=== PATIENT | female | born 1960 | race Caucasian/White ===

== ENCOUNTER 2025-07-27 22:02 | Inpatient (IN) | payer OTHER, SELFPAY ==
[2025-07-27 22:39] VITALS: BP 135/63; PULSE 65; RESP 18; TEMP 36.2; O2SAT 97
[2025-07-27 22:44] VITALS: BMI 25.4
--- NOTE | 2025-07-28 06:26 | PC.NURSE ---
Patient is a 65 y/o female admitted at 22:30 on a CV for unspecified depressive disorder. Patient presented to [facility] on 07/22/25 d/t dizziness and confusion and later referred to behavioral health d/t concerns with AMS and ability to care for self. Patient is alert and oriented x 4 upon arrival, calm and soft spoken, flat affect and apathetic. Patient reports reason for admission is confusion, depression r/t to health and financial stressors, denies any HI/SI/AH/VH. Patient has a history of depression and various medical conditions including HTN, HDL, low grade B cell lymphoma, PUD, GERD, CHF and cardiomyopathy, LBBB, vertigo, anemia, primary biliary cholangitis, history of c-diff and antiphospholipid antibody syndrome. Skin assessment is significant for swelling in L antecubital r/t iv administration. Contraband search is clear, patient is continent and independent with ADLs. Patient signed admission paperwork, placed on 5 minutes safety check.
[2025-07-28 08:00] VITALS: BP 85/55; PULSE 77; RESP 17; TEMP 36.4; O2SAT 96
--- NOTE | 2025-07-28 08:12 | P.CONHOSP_ITS ---
History of Present Illness Data of Consult Service Date: 07/28/25 Primary Care Provider: Unknown Physician HPI Reason for consult: Medical consult 65-year-old female with past medical history of GERD, chronic kidney disease stage 3, heart failure with reduced EF of 38%, hypertension, hyperlipidemia, cardiomyopathy, patient also has AICD, poly arthralgia, vertigo, peptic ulcer disease, anemia, primary biliary cholangitis, history of C diff, phospholipid and depression, she was recently admitted to [facility] initially as a psychiatric admission and then later transferred to medicine for C diff colitis. She was discharged in June. Incidentally patient was found to have [id number] right hydronephrosis without obstructing calculus. Also found to have a 1 cm right thyroid nodule. She underwent a head and neck CTA which demonstrated no acute intracranial findings, no occlusion or hemodynamically significant stenosis or aneurysm. S x-ray demonstrated no acute cardiopulmonary abnormality. Review of Systems 2 Review of Systems: Denies any shortness of breath, chest pain, palpitations, dizziness, lightheadedness, headaches, dysuria, abdominal pain or discomfort, nausea, vomiting or diarrhea. Denies chills, body aches, muscle aches, fatigue or weight loss. PMFSH Social History Household Members: Family Housing: House Do you presently have visiting nurse or other home services: No Patient Tobacco Use Status: Former Tobacco user Tobacco use type: Cigarette Years Smoked: 20 Smoked in Last 30 Days: No Patient Interested in Nicotine Replacement: No Patient Given Instructions on How to Stop Smoking: No Currently Displaying Signs/Symptoms of Drug Intoxication Withdrawal: No Have you been hit, kicked, punched, or otherwise hurt by someone within the past year? If so, by whom?: No Do you feel safe in your current relationship?: Yes Is there a partner from a previous relationship who is making you feel unsafe now?: No Are you made to feel afraid or neglected: No Advance Directives: No Advance Directives Information Provided: Yes Do you have thoughts of harming others: None Do you have a plan to hurt others: No Plan Recently lost weight without trying: Yes How much weight loss: 14-23 pounds Eating poorly because of decreased appetite: Yes Nutrition screen score: 5 Nutrition Risks: Dental problems Patient : No : No Meds Allergies Allergy/AdvReac Type Severity Reaction Status Date / Time No Known Allergies Allergy Verified 07/27/25 22:12 Active Medications: Current Medications Acetaminophen (Acetaminophen 325 Mg Tablet) 650 mg PO Q6H PRN PRN Reason: Headache/Pain, Scale 1-10 Al Hydroxide/Mg Hydroxide (Magnesium Hydrox/Alum Hydrox 30 Ml Oral.Susp) 30 ml PO Q6H PRN PRN Reason: Heartburn/Nausea Atorvastatin Calcium (Atorvastatin Calcium 40 Mg Tablet) 40 mg PO DAILY [facility] Carvedilol (Carvedilol 25 Mg Tablet) 25 mg PO BID [facility]; Protocol Last Admin: 07/28/25 00:39 Dose: 25 mg Fluoxetine HCl (Fluoxetine Hcl 20 Mg Capsule) 40 mg PO DAILY [facility] Hydroxyzine HCl (Hydroxyzine Hcl 25 Mg Tablet) 25 mg PO Q6H PRN PRN Reason: mild anxiety Lisinopril (Lisinopril 10 Mg Tablet) 10 mg PO DAILY [facility]; Protocol Magnesium Hydroxide (Milk Of Magnesia 30 Ml Oral.Susp) 30 ml PO DAILY PRN PRN Reason: Constipation Nicotine (Nicotine 21 Mg Patch.Td24) 21 mg TRANSDERMA DAILY PRN PRN Reason: nicotine craving Nicotine Polacrilex (Nicotine Polacrilex 2 Mg Gum) 2 mg BUCCAL Q2H PRN PRN Reason: Nicotine Cravings Trazodone HCl (Trazodone Hcl 50 Mg Tablet) 50 mg PO BEDTIME MRX1 PRN PRN Reason: Insomnia Trazodone HCl (Trazodone Hcl 50 Mg Tablet) 50 mg PO BEDTIME [facility] Last Admin: 07/28/25 00:39 Dose: 50 mg Home Medications ?Medication ?Instructions ?Recorded ?Confirmed ?Last Taken ?Type atorvastatin 40 mg tablet 40 mg PO DAILY 07/27/2506/13 Unknown History carvedilol 25 mg tablet 25 mg PO BID 07/27/25 Unknown History fluoxetine 40 mg capsule 40 mg PO QAM 07/27/25 Unknown History lisinopril 10 mg tablet 10 mg PO DAILY 07/27/2506/13 Unknown History trazodone 50 mg tablet 50 mg PO BEDTIME 07/27/25 Unknown History Physical Exam 2 Vital Signs and Narrative: Vital Signs: Last Vital Signs Temp 97.1 F 07/27/25 22:39 Pulse 65 07/27/25 22:39 Resp 18 07/27/25 22:39 BP 135/63 07/27/25 22:39 Pulse Ox 97 07/27/25 22:39 O2 Del Method Room Air 07/27/25 22:39 BMI result Body Mass Index 25.4 CONST: Alert and oriented, in NAD. Well nourished HEENT: Normocephalic, atraumatic, MMM, Eyes clear, Neck supple RESP: Lungs clear, RRR even and regular HEART:,RRR, S1, S2. No edema GI:Abdomen Soft NT, ND. + BS times four :Deferred SKIN: Warm dry and intact, no visible lesions or rashes NEURO:CN II-XII Intact bilaterally, Sensation intact. Speech clear PSYCH: Normal affect Results Labs 07/28/25 07:21 Assessment and Plan (1) Chronic kidney disease: Status: Acute Plan 64-year-old female with past medical history as listed below, admitted to [facility] for continued care. Major depressive disorder Treatment per psychiatric team GERD Continue omeprazole as needed Chronic kidney disease stage 3 Stable, continue to follow Avoid nephrotoxins Heart failure with reduced EF of 38%/hypertension/hyperlipidemia/cardiomyopathy/AICD/history of left bundle- branch block Her outpatient medications were recently reduced to carvedilol 12.5 b.i.d., and lisinopril 5 mg p.o. daily Continue with Lasix 10 mg daily as needed for edema, or weight gain greater than 2 lb overnight Patient's AICD is not MRI compatible Incidental finding of thyroid nodule We will need outpatient follow up [id number] right hydronephrosis without radiopaque obstructing calculus Possibly due to UPJ obstruction We will need follow up in 1 week for a Mag 3 Lasix renogram. Patient should follow up with Dr. Toth Thank you for allowing me to participate in the care of this patient. Will follow as needed, please notify medical provider with any changes in condition or concerns.
[2025-07-28 08:17] LABS: Hemoglobin A1C 83.7628 umol/L; Total Hemoglobin (HGBA1C) 2660.5961 umol/L
[2025-07-28 08:26] LABS: Alanine Aminotransferase 83 U/L (0-31); Albumin Level 3.2 g/dL (3.5-5.0); Alkaline Phosphatase 124 U/L (39-117); Anion Gap 10 (12-20); Aspartate Amino Transferase 67 U/L (5-31); Blood Urea Nitrogen 11 mg/dL (9-16); Calcium 9.0 mg/dL (8.4-10.2); Carbon Dioxide 27 mmol/L (22-29); Chloride 110 mmol/L (96-108); Cholesterol 116 mg/dL (<200); Creatinine Clr Calc Pharmacy 63.8; Estimated Glomerular Filt Rate > 60; HDL Cholesterol 39 mg/dL (>40); Potassium 3.7 mmol/L (3.3-5.1); Sodium 143 mmol/L (135-145); Total Protein 6.2 g/dL (6.5-8.0); Triglycerides 104 mg/dL (<150)
--- NOTE | 2025-07-28 08:42 | HO.PSYADMNOT ---
HPI Date of Service: 07/28/25 Chief Complaint: unspecified depressive disorder Sources of Information: patient interviewed, chart reviewed and crisis/core team assessment reviewed HPI Subjective Notes: Wiseman Warning and Conditional Voluntary Narrative: Mrs. Chavez is a 65 year-old woman with hx of depression, memory issues who was brought by her mother to [facility] due to increase dizziness. She also was recently discharged from psychiatric unit at [facility] after treatment of depression. Per pt's mother, she looked worse than when she went into the hospital in that per mother, pt was still depressed, in bed, not caring for herself. On the unit, pt reports her mood actually is okay. She reports she is here because she has had gaps in memory. She reports she is forgetful. She reports this has been an issue for past few years. She reports her memory is affecting her ability to care for herself. She denies suicidal ideation. She reports her appetite is as usual. She denies hx of VH/AH. She reports she has only had one prior psychiatric admission which is the one she just had at [facility]. She reports she has been seeing a psychiatrist for memory issues. Collateral information from mother who reports pt has been living with her for the past 4 years. Mother reports pt struggles with forgetfulness, difficulty cooking (not knowing how to start or initiate simple cooking), getting lost when driving. She has been mostly in bed. Past Psychiatric History: Inpt: [facility] 06/2025, 5 years ago in [place] (unknown facility or reason for admission) OP: Adair Sanchez MD [facility]. Past medication trials: prozac denies hx of suicide attempts. Medical Evaluation Reviewed: Yes [facility] Substance History: Alcohol use: excessive drinking after in 1998. none recently. Diagnostics Vital Signs (24Hr): Vital Signs - 24 hr 07/27/25 22:39 Temperature 97.1 F Pulse Rate 65 Respiratory Rate 18 Blood Pressure 135/63 Pulse Oximetry 97 Oxygen Delivery Method Room Air BMI result Body Mass Index 25.4 Labs 07/28/25 07:21 Labs: Laboratory Results - last 48 hr 07/28/25 07:21 Sodium 143 Potassium 3.7 Chloride 110 H Carbon Dioxide 27 Anion Gap 10 L BUN 11 Creatinine 0.85 Estim Creat Clear Calc 63.8 Estimated GFR > 60 Random Glucose 101 Estimat Average Glucose 97 Hemoglobin A1c % 5.0 Calcium 9.0 Total Bilirubin 0.3 AST 67 H ALT 83 H Alkaline Phosphatase 124 H Total Protein 6.2 L Albumin 3.2 L Triglycerides 104 Cholesterol 116 LDL Cholesterol, Calc 57 HDL Cholesterol 39 L Meds/Allergies Meds Home Medications ?Medication ?Instructions ?Recorded ?Confirmed ?Type atorvastatin 40 mg tablet 40 mg PO DAILY 07/27/25 07/27/25 History carvedilol 25 mg tablet 25 mg PO BID 07/27/25 07/27/25 History fluoxetine 40 mg capsule 40 mg PO QAM 07/27/25 07/27/25 History lisinopril 10 mg tablet 10 mg PO DAILY 07/27/25 07/27/25 History trazodone 50 mg tablet 50 mg PO BEDTIME 07/27/25 07/27/25 History Allergies Allergies Allergy/AdvReac Type Severity Reaction Status Date / Time No Known Allergies Allergy Verified 07/27/25 22:12 Mental Status Exam Mental Status Exam Narrative: Appearance: wearing hospital gown, fair hygiene, in NAD Behavior: cooperative Psychomotor: no agitation or retardation noted Speech: clear, normal rate/rhythm/volume, spontaneous TP: linear TC: c/o of memory gaps Mood: okay Affect: congruent, constricted range SI: denies HI: denies VH/AH: none Delusions: none Insight/judgment: fair x 2. Memory/cog: alert, oriented to month, year, situation Assessment & Plan Assessment & Plan (1) MDD (major depressive disorder), recurrent episode, moderate: Status: Acute Code(s): F33.1 - Major depressive disorder, recurrent, moderate (2) Cognitive impairment: Status: Acute Code(s): R41.89 - Other symptoms and signs involving cognitive functions and awareness Plan Ms. Chavez is a 65 year-old woman who was brought to [facility] due to dizziness. She lives with her mother who is main caregiver and reports that patient for the past 4 years has been presenting with inability to care for herself, getting lost when driving, forgetful. She denies symptoms of depression and suicidality. She reports her main concern is memory gaps. Discussed risks, benefits and alternative treatment options. Will continue current medications. Per mother, she has not been seen by neurology. PLAN 1. Admit to S1, CV, 5 minutes checks for safety 2. Obtain collateral information 3. memory/cog: work up. It appears that she has not had MRI. Pending MOCA/ACL. may include serum [id number]/amyloid Patient educated on: diagnosis and medication risk/benefits Reason for continued inpatient stay Substantial Risk for: harm to self Statement Statement: I have reviewed the history and physical and performed a pertinent examination on my patient. No changes have occurred unless specified. If the History and Physical was not performed prior to admission, the Hospitalist's service will be consulted for completing the admission physical. Time Spent With Patient Time: Total time managing care of this patient today ____ minutes.
[2025-07-28 08:43] LABS: Free T4 (Free Thyroxine) 0.87 ng/dL (0.71-1.85); Thyroid Stimulating Hormone 3.70 uIU/mL (0.32-4.0)
[2025-07-28 08:49] LABS: Folate 7.2 ng/mL (> or = 4.0); Vitamin B12 357 pg/mL (200-900)
[2025-07-28 09:08] VITALS: BP 85/55; PULSE 77
[2025-07-28 09:09] VITALS: BP 85/55
--- NOTE | 2025-07-28 13:30 | PC.NURSE ---
Wendy's BP at am 85/55, p 77. Blood pressure meds held, dr Ignacio notified by tara. Re-check a few hours later for BP 104/62, P 74. I talked to the pt about the flu shot. She said she got it already showing the left deltoid with band aid on it. However, pt didn't remember when or where she got it.
[2025-07-28 13:33] VITALS: BMI 25.3
[2025-07-28 20:00] VITALS: BP 100/59; PULSE 68; RESP 16; TEMP 36.5; O2SAT 96
[2025-07-29 08:00] VITALS: BP 113/68; PULSE 73; RESP 16; TEMP 36.2; O2SAT 95
--- NOTE | 2025-07-29 09:34 | P.PNPSI_ITS ---
Subjective Subjective Date of Service: 07/29/25 Reason For Visit: unspecified depressive disorder Subjective Notes: Conditional Voluntary Interim History: Pt sleeping through the night. She continues to report mood is okay, concern about her memory. collateral information from mother who reports pt increased memory issues for the past 4 years, but she has not been seen by neurologist. No Si/HI. no VHAH. Review of Systems Review of Systems No chest pain, no SOB. No constipation or diarrhea. Reports vision changes on right eye. no painful eye. Mental Status Exam Mental Status Exam Narrative: Appearance: wearing hospital gown, fair hygiene, in NAD Behavior: cooperative Psychomotor: no agitation or retardation noted Speech: clear, normal rate/rhythm/volume, spontaneous TP: linear TC: c/o of memory gaps Mood: okay Affect: congruent, constricted range SI: denies HI: denies VH/AH: none Delusions: none Insight/judgment: fair x 2. Memory/cog: alert, oriented to month, year, situation Diagnostics Vital Signs (24Hr): Vital Signs - 24 hr 07/28/25 20:00 07/29/25 08:00 Temperature 97.7 F 97.2 F Pulse Rate 68 73 Respiratory Rate 16 16 Blood Pressure 100/59 L 113/68 Pulse Oximetry 96 95 Oxygen Delivery Method Room Air BMI result Body Mass Index 25.3 Labs 07/28/25 07:21 Labs: Laboratory Results - last 48 hr 07/28/25 07:21 Sodium 143 Potassium 3.7 Chloride 110 H Carbon Dioxide 27 Anion Gap 10 L BUN 11 Creatinine 0.85 Estim Creat Clear Calc 63.8 Estimated GFR > 60 Random Glucose 101 Estimat Average Glucose 97 Hemoglobin A1c % 5.0 Calcium 9.0 Total Bilirubin 0.3 AST 67 H ALT 83 H Alkaline Phosphatase 124 H Total Protein 6.2 L Albumin 3.2 L Triglycerides 104 Cholesterol 116 LDL Cholesterol, Calc 57 HDL Cholesterol 39 L Vitamin B12 357 Folate 7.2 TSH 3.70 Free T4 0.87 Medications Medications Current Medications Acetaminophen (Acetaminophen 325 Mg Tablet) 650 mg PO Q6H PRN PRN Reason: Headache/Pain, Scale 1-10 Last Admin: 07/28/25 08:17 Dose: 650 mg Al Hydroxide/Mg Hydroxide (Magnesium Hydrox/Alum Hydrox 30 Ml Oral.Susp) 30 ml PO Q6H PRN PRN Reason: Heartburn/Nausea Atorvastatin Calcium (Atorvastatin Calcium 40 Mg Tablet) 40 mg PO DAILY [facility] Last Admin: 07/29/25 08:54 Dose: 40 mg Carvedilol (Carvedilol 25 Mg Tablet) 12.5 mg PO BID [facility]; Protocol Last Admin: 07/29/25 08:53 Dose: 12.5 mg Fluoxetine HCl (Fluoxetine Hcl 20 Mg Capsule) 40 mg PO DAILY [facility] Last Admin: 07/29/25 08:53 Dose: 40 mg Hydroxyzine HCl (Hydroxyzine Hcl 25 Mg Tablet) 25 mg PO Q6H PRN PRN Reason: mild anxiety Lisinopril (Lisinopril 5 Mg Tablet) 5 mg PO DAILY [facility]; Protocol Last Admin: 07/29/25 08:53 Dose: 5 mg Magnesium Hydroxide (Milk Of Magnesia 30 Ml Oral.Susp) 30 ml PO DAILY PRN PRN Reason: Constipation Nicotine (Nicotine 21 Mg Patch.Td24) 21 mg TRANSDERMA DAILY PRN PRN Reason: nicotine craving Nicotine Polacrilex (Nicotine Polacrilex 2 Mg Gum) 2 mg BUCCAL Q2H PRN PRN Reason: Nicotine Cravings Trazodone HCl (Trazodone Hcl 50 Mg Tablet) 50 mg PO BEDTIME MRX1 PRN PRN Reason: Insomnia Trazodone HCl (Trazodone Hcl 50 Mg Tablet) 50 mg PO BEDTIME [facility] Last Admin: 07/28/25 21:07 Dose: 50 mg Allergies Allergies Allergy/AdvReac Type Severity Reaction Status Date / Time No Known Allergies Allergy Verified 07/27/25 22:12 Assessment & Plan Assessment & Plan (1) MDD (major depressive disorder), recurrent episode, moderate: Status: Acute Code(s): F33.1 - Major depressive disorder, recurrent, moderate Plan Ms. Chavez is a 65 year-old woman who was brought to [facility] due to dizziness. She lives with her mother who is main caregiver and reports that patient for the past 4 years has been presenting with inability to care for herself, getting lost when driving, forgetful. She denies symptoms of depression and suicidality. She reports her main concern is memory gaps. Discussed risks, benefits and alternative treatment options. Will continue current medications. Per mother, she has not been seen by neurology. PLAN 07/30 she can't have MRI due to implantable device not compatible with MRI. may need to be referred to memory clinic in her catch area. otherwise seems stable, mood wick. Reason for continued inpatient stay Substantial Risk for: inability to function Time Spent With Patient Time: Total time managing care of this patient today ____ minutes.
[2025-07-29 20:00] VITALS: BP 95/55; PULSE 65; RESP 18; TEMP 36.5; O2SAT 95
[2025-07-29 21:06] VITALS: BP 90/55; PULSE 63
[2025-07-30 08:48] VITALS: BP 100/54; PULSE 62; RESP 18; TEMP 36.6; O2SAT 95
[2025-07-30 09:53] VITALS: BMI 25.8
--- NOTE | 2025-07-30 12:53 | HO.PSYCHPN ---
Subjective Subjective Date of Service: 07/30/25 Reason For Visit: unspecified depressive disorder Subjective Notes: Conditional Voluntary Interim History: Patient was seen and discussed in rounds today. Records and plans were reviewed. She has been stable and is doing better but continues to be confused. Complaining of some low back pain for which she did receive some medications. The nurses asked for the Lasix order which was agreed in the treatment planning to be put in for 10 mg if the overnight weight is more than 2 lb. No SI. No behavioral issues Review of Systems Review of Systems Yes all other systems are reviewed and are negative Mental Status Exam Mental Status Exam Narrative: Appearance: wearing hospital gown, fair hygiene, in NAD Behavior: cooperative Psychomotor: no agitation or retardation noted Speech: clear, normal rate/rhythm/volume, spontaneous TP: linear TC: c/o of memory gaps Mood: okay Affect: congruent, constricted range SI: denies HI: denies VH/AH: none Delusions: none Insight/judgment: fair x 2. Memory/cog: alert, oriented to month, year, situation Diagnostics Vital Signs (24Hr): Vital Signs - 24 hr 07/29/25 20:00 07/29/25 21:06 07/30/25 08:48 Temperature 97.7 F 97.9 F Pulse Rate 65 63 62 Respiratory Rate 18 18 Blood Pressure 95/55 L 90/55 L 100/54 L Pulse Oximetry 95 95 Oxygen Delivery Method Room Air Room Air BMI result Body Mass Index 25.8 Labs 07/28/25 07:21 Medications Medications Current Medications Acetaminophen (Acetaminophen 325 Mg Tablet) 650 mg PO Q6H PRN PRN Reason: Headache/Pain, Scale 1-10 Last Admin: 07/28/25 08:17 Dose: 650 mg Al Hydroxide/Mg Hydroxide (Magnesium Hydrox/Alum Hydrox 30 Ml Oral.Susp) 30 ml PO Q6H PRN PRN Reason: Heartburn/Nausea Atorvastatin Calcium (Atorvastatin Calcium 40 Mg Tablet) 40 mg PO DAILY [facility] Last Admin: 07/30/25 08:54 Dose: 40 mg Carvedilol (Carvedilol 25 Mg Tablet) 12.5 mg PO BID [facility]; Protocol Last Admin: 07/30/25 08:52 Dose: 12.5 mg Fluoxetine HCl (Fluoxetine Hcl 20 Mg Capsule) 40 mg PO DAILY [facility] Last Admin: 07/30/25 08:53 Dose: 40 mg Hydroxyzine HCl (Hydroxyzine Hcl 25 Mg Tablet) 25 mg PO Q6H PRN PRN Reason: mild anxiety Lisinopril (Lisinopril 5 Mg Tablet) 5 mg PO DAILY [facility]; Protocol Last Admin: 07/30/25 08:54 Dose: 5 mg Magnesium Hydroxide (Milk Of Magnesia 30 Ml Oral.Susp) 30 ml PO DAILY PRN PRN Reason: Constipation Nicotine (Nicotine 21 Mg Patch.Td24) 21 mg TRANSDERMA DAILY PRN PRN Reason: nicotine craving Nicotine Polacrilex (Nicotine Polacrilex 2 Mg Gum) 2 mg BUCCAL Q2H PRN PRN Reason: Nicotine Cravings Trazodone HCl (Trazodone Hcl 50 Mg Tablet) 50 mg PO BEDTIME MRX1 PRN PRN Reason: Insomnia Trazodone HCl (Trazodone Hcl 50 Mg Tablet) 50 mg PO BEDTIME [facility] Last Admin: 07/29/25 21:07 Dose: 50 mg Allergies Allergies Allergy/AdvReac Type Severity Reaction Status Date / Time No Known Allergies Allergy Verified 07/27/25 22:12 Assessment & Plan Assessment & Plan (1) MDD (major depressive disorder), recurrent episode, moderate: Status: Acute Code(s): F33.1 - Major depressive disorder, recurrent, moderate Plan Ms. Chavez is a 65 year-old woman who was brought to [facility] [place] due to dizziness. She lives with her mother who is main caregiver and reports that patient for the past 4 years has been presenting with inability to care for herself, getting lost when driving, forgetful. She denies symptoms of depression and suicidality. She reports her main concern is memory gaps. Discussed risks, benefits and alternative treatment options. Will continue current medications. Per mother, she has not been seen by neurology. PLAN 07/30 she can't have MRI due to implantable device not compatible with MRI. may need to be referred to memory clinic in her catch area. otherwise seems stable, mood wick. 07/30: Continue current regimen and plans Reason for continued inpatient stay Substantial Risk for: med/psych decompensation Time Spent With Patient Time: Total time managing care of this patient today ____ minutes.
[2025-07-30 20:00] VITALS: BP 123/52; PULSE 67; RESP 16; TEMP 36.3; O2SAT 94
[2025-07-30 20:48] VITALS: BP 123/52; PULSE 67
[2025-07-31 07:25] VITALS: BMI 25.7
[2025-07-31 08:04] VITALS: BP 111/66; PULSE 64; RESP 18; TEMP 36.3; O2SAT 98
--- NOTE | 2025-07-31 12:28 | HO.PSYCHPN ---
Subjective Subjective Date of Service: 07/31/25 Reason For Visit: unspecified depressive disorder Subjective Notes: Conditional Voluntary Interim History: Patient was seen and discussed in rounds today. Records and plans were reviewed. She has been stable. She did not require any Lasix this morning because of no additional weight gain. She is flat. Slightly brighter. Withdrawn. No behavioral issues. No changes were made today Review of Systems Review of Systems Yes all other systems are reviewed and are negative Mental Status Exam Mental Status Exam Narrative: Appearance: wearing hospital gown, fair hygiene, in NAD Behavior: cooperative Psychomotor: no agitation or retardation noted Speech: clear, normal rate/rhythm/volume, spontaneous TP: linear TC: c/o of memory gaps Mood: okay Affect: congruent, constricted range SI: denies HI: denies VH/AH: none Delusions: none Insight/judgment: fair x 2. Memory/cog: alert, oriented to month, year, situation Diagnostics Vital Signs (24Hr): Vital Signs - 24 hr 07/30/25 20:00 07/30/25 20:48 07/31/25 08:04 Temperature 97.3 F 97.3 F Pulse Rate 67 67 64 Respiratory Rate 16 18 Blood Pressure 123/52 L 123/52 L 111/66 Pulse Oximetry 94 98 Oxygen Delivery Method Room Air Room Air BMI result Body Mass Index 25.7 Labs 07/28/25 07:21 Medications Medications Current Medications Acetaminophen (Acetaminophen 325 Mg Tablet) 650 mg PO Q6H PRN PRN Reason: Headache/Pain, Scale 1-10 Last Admin: 07/28/25 08:17 Dose: 650 mg Al Hydroxide/Mg Hydroxide (Magnesium Hydrox/Alum Hydrox 30 Ml Oral.Susp) 30 ml PO Q6H PRN PRN Reason: Heartburn/Nausea Atorvastatin Calcium (Atorvastatin Calcium 40 Mg Tablet) 40 mg PO DAILY [facility] Last Admin: 07/31/25 08:47 Dose: 40 mg Carvedilol (Carvedilol 25 Mg Tablet) 12.5 mg PO BID [facility]; Protocol Last Admin: 07/31/25 08:46 Dose: 12.5 mg Fluoxetine HCl (Fluoxetine Hcl 20 Mg Capsule) 40 mg PO DAILY [facility] Last Admin: 07/31/25 08:47 Dose: 40 mg Furosemide (Furosemide 20 Mg Tablet) 10 mg PO DAILY PRN; Protocol PRN Reason: edema Hydroxyzine HCl (Hydroxyzine Hcl 25 Mg Tablet) 25 mg PO Q6H PRN PRN Reason: mild anxiety Lisinopril (Lisinopril 5 Mg Tablet) 5 mg PO DAILY [facility]; Protocol Last Admin: 07/31/25 08:47 Dose: 5 mg Magnesium Hydroxide (Milk Of Magnesia 30 Ml Oral.Susp) 30 ml PO DAILY PRN PRN Reason: Constipation Nicotine (Nicotine 21 Mg Patch.Td24) 21 mg TRANSDERMA DAILY PRN PRN Reason: nicotine craving Nicotine Polacrilex (Nicotine Polacrilex 2 Mg Gum) 2 mg BUCCAL Q2H PRN PRN Reason: Nicotine Cravings Trazodone HCl (Trazodone Hcl 50 Mg Tablet) 50 mg PO BEDTIME MRX1 PRN PRN Reason: Insomnia Trazodone HCl (Trazodone Hcl 50 Mg Tablet) 50 mg PO BEDTIME [facility] Last Admin: 07/30/25 20:48 Dose: 50 mg Allergies Allergies Allergy/AdvReac Type Severity Reaction Status Date / Time No Known Allergies Allergy Verified 07/27/25 22:12 Assessment & Plan Assessment & Plan (1) MDD (major depressive disorder), recurrent episode, moderate: Status: Acute Code(s): F33.1 - Major depressive disorder, recurrent, moderate Plan Ms. Chavez is a 65 year-old woman who was brought to [facility] due to dizziness. She lives with her mother who is main caregiver and reports that patient for the past 4 years has been presenting with inability to care for herself, getting lost when driving, forgetful. She denies symptoms of depression and suicidality. She reports her main concern is memory gaps. Discussed risks, benefits and alternative treatment options. Will continue current medications. Per mother, she has not been seen by neurology. PLAN 07/30 she can't have MRI due to implantable device not compatible with MRI. may need to be referred to memory clinic in [place]. otherwise seems stable, mood wick. 07/30: Continue current regimen and plans 07/31: Continue current regimen and plans Reason for continued inpatient stay Substantial Risk for: med/psych decompensation Time Spent With Patient Time: Total time managing care of this patient today ____ minutes.
[2025-07-31 19:39] VITALS: BP 110/56; PULSE 68; RESP 18; TEMP 36.3; O2SAT 97
[2025-08-01 06:00] VITALS: BMI 25.9
[2025-08-01 08:00] VITALS: BP 123/62; PULSE 75; TEMP 36.2; O2SAT 95
--- NOTE | 2025-08-01 10:13 | P.PNPSI_ITS ---
Subjective Subjective Date of Service: 08/01/25 Reason For Visit: unspecified depressive disorder Subjective Notes: Conditional Voluntary Interim History: Patient was seen and discussed in rounds today. Records and plans were reviewed. She is stable and is doing well. No overnight weight gain. Feels that her depression has improved. No behavioral issues. Eating and sleeping well. No changes were made today Review of Systems Review of Systems Yes all other systems are reviewed and are negative Mental Status Exam Mental Status Exam Narrative: In today's visit she is alert, oriented and pleasant. Normal speech. Good eye contact. Affect is appropriate and varied. No signs of psychosis. Some cognitive impairment. No SI. Diagnostics Vital Signs (24Hr): Vital Signs - 24 hr 07/31/25 19:39 Temperature 97.3 F Pulse Rate 68 Respiratory Rate 18 Blood Pressure 110/56 L Pulse Oximetry 97 Oxygen Delivery Method Room Air BMI result Body Mass Index 25.9 Labs 07/28/25 07:21 Medications Medications Current Medications Acetaminophen (Acetaminophen 325 Mg Tablet) 650 mg PO Q6H PRN PRN Reason: Headache/Pain, Scale 1-10 Last Admin: 07/28/25 08:17 Dose: 650 mg Al Hydroxide/Mg Hydroxide (Magnesium Hydrox/Alum Hydrox 30 Ml Oral.Susp) 30 ml PO Q6H PRN PRN Reason: Heartburn/Nausea Atorvastatin Calcium (Atorvastatin Calcium 40 Mg Tablet) 40 mg PO DAILY [facility] Last Admin: 08/01/25 08:44 Dose: 40 mg Carvedilol (Carvedilol 25 Mg Tablet) 12.5 mg PO BID [facility]; Protocol Last Admin: 08/01/25 08:44 Dose: 12.5 mg Fluoxetine HCl (Fluoxetine Hcl 20 Mg Capsule) 40 mg PO DAILY [facility] Last Admin: 08/01/25 08:45 Dose: 40 mg Furosemide (Furosemide 20 Mg Tablet) 10 mg PO DAILY PRN; Protocol PRN Reason: edema Hydroxyzine HCl (Hydroxyzine Hcl 25 Mg Tablet) 25 mg PO Q6H PRN PRN Reason: mild anxiety Lisinopril (Lisinopril 5 Mg Tablet) 5 mg PO DAILY [facility]; Protocol Last Admin: 08/01/25 08:45 Dose: 5 mg Magnesium Hydroxide (Milk Of Magnesia 30 Ml Oral.Susp) 30 ml PO DAILY PRN PRN Reason: Constipation Nicotine (Nicotine 21 Mg Patch.Td24) 21 mg TRANSDERMA DAILY PRN PRN Reason: nicotine craving Nicotine Polacrilex (Nicotine Polacrilex 2 Mg Gum) 2 mg BUCCAL Q2H PRN PRN Reason: Nicotine Cravings Trazodone HCl (Trazodone Hcl 50 Mg Tablet) 50 mg PO BEDTIME MRX1 PRN PRN Reason: Insomnia Trazodone HCl (Trazodone Hcl 50 Mg Tablet) 50 mg PO BEDTIME [facility] Last Admin: 07/31/25 20:41 Dose: 50 mg Allergies Allergies Allergy/AdvReac Type Severity Reaction Status Date / Time No Known Allergies Allergy Verified 07/27/25 22:12 Assessment & Plan Assessment & Plan (1) MDD (major depressive disorder), recurrent episode, moderate: Status: Acute Code(s): F33.1 - Major depressive disorder, recurrent, moderate Plan Ms. Chavez is a 65 year-old woman who was brought to [facility] due to dizziness. She lives with her mother who is main caregiver and reports that patient for the past 4 years has been presenting with inability to care for herself, getting lost when driving, forgetful. She denies symptoms of depression and suicidality. She reports her main concern is memory gaps. Discussed risks, benefits and alternative treatment options. Will continue current medications. Per mother, she has not been seen by neurology. PLAN 07/30 she can't have MRI due to implantable device not compatible with MRI. may need to be referred to memory clinic in her [place] area. otherwise seems stable, mood wick. 07/30: Continue current regimen and plans 07/31: Continue current regimen and plans 08/01: Continue current regimen and plans. Reason for continued inpatient stay Substantial Risk for: med/psych decompensation Time Spent With Patient Time: Total time managing care of this patient today ____ minutes.
[2025-08-01 14:59] LABS: Vitamin D 25-OH, D2 <4 ng/mL; Vitamin D 25-OH, D3 23 ng/mL; Vitamin D 25-OH, Total 23 ng/mL (30-100)
[2025-08-01 20:00] VITALS: BP 95/50; PULSE 67; TEMP 36.3; O2SAT 97
[2025-08-01 20:17] VITALS: BP 95/50; PULSE 67
[2025-08-02 06:00] VITALS: BMI 26.3
[2025-08-02 08:00] VITALS: BP 109/65; PULSE 84; RESP 14; TEMP 36.3; O2SAT 95
--- NOTE | 2025-08-02 08:37 | HO.PSYCHPN ---
Subjective Subjective Reason For Visit: unspecified depressive disorder Diagnostics Vital Signs (24Hr): Vital Signs - 24 hr 08/01/25 20:00 08/01/25 20:17 08/02/25 08:00 Temperature 97.4 F 97.4 F Pulse Rate 67 67 84 Respiratory Rate 14 Blood Pressure 95/50 L 95/50 L 109/65 Pulse Oximetry 97 95 Oxygen Delivery Method Room Air Room Air BMI result Body Mass Index 25.9 Labs 07/28/25 07:21 Labs: Laboratory Results - last 48 hr 07/28/25 07:21 25-OH Vitamin D Total 23 L 25-Hydroxy Vitamin D2 <4 25-Hydroxy Vitamin D3 23 Medications Medications Current Medications Acetaminophen (Acetaminophen 325 Mg Tablet) 650 mg PO Q6H PRN PRN Reason: Headache/Pain, Scale 1-10 Last Admin: 07/28/25 08:17 Dose: 650 mg Al Hydroxide/Mg Hydroxide (Magnesium Hydrox/Alum Hydrox 30 Ml Oral.Susp) 30 ml PO Q6H PRN PRN Reason: Heartburn/Nausea Atorvastatin Calcium (Atorvastatin Calcium 40 Mg Tablet) 40 mg PO DAILY [facility] Last Admin: 08/02/25 08:30 Dose: 40 mg Carvedilol (Carvedilol 25 Mg Tablet) 12.5 mg PO BID [facility]; Protocol Last Admin: 08/02/25 08:31 Dose: 12.5 mg Fluoxetine HCl (Fluoxetine Hcl 20 Mg Capsule) 40 mg PO DAILY [facility] Last Admin: 08/02/25 08:30 Dose: 40 mg Furosemide (Furosemide 20 Mg Tablet) 10 mg PO DAILY PRN; Protocol PRN Reason: edema Hydroxyzine HCl (Hydroxyzine Hcl 25 Mg Tablet) 25 mg PO Q6H PRN PRN Reason: mild anxiety Last Admin: 08/01/25 20:54 Dose: 25 mg Lisinopril (Lisinopril 5 Mg Tablet) 5 mg PO DAILY [facility]; Protocol Last Admin: 08/02/25 08:30 Dose: 5 mg Magnesium Hydroxide (Milk Of Magnesia 30 Ml Oral.Susp) 30 ml PO DAILY PRN PRN Reason: Constipation Nicotine (Nicotine 21 Mg Patch.Td24) 21 mg TRANSDERMA DAILY PRN PRN Reason: nicotine craving Nicotine Polacrilex (Nicotine Polacrilex 2 Mg Gum) 2 mg BUCCAL Q2H PRN PRN Reason: Nicotine Cravings Trazodone HCl (Trazodone Hcl 50 Mg Tablet) 50 mg PO BEDTIME MRX1 PRN PRN Reason: Insomnia Trazodone HCl (Trazodone Hcl 50 Mg Tablet) 50 mg PO BEDTIME [facility] Last Admin: 08/01/25 20:12 Dose: 50 mg Allergies Allergies Allergy/AdvReac Type Severity Reaction Status Date / Time No Known Allergies Allergy Verified 07/27/25 22:12 Assessment & Plan Assessment & Plan (1) MDD (major depressive disorder), recurrent episode, moderate: Status: Acute Code(s): F33.1 - Major depressive disorder, recurrent, moderate Plan Ms. Chavez is a 65 year-old woman who was brought to [email or web address] due to dizziness. She lives with her mother who is main caregiver and reports that patient for the past 4 years has been presenting with inability to care for herself, getting lost when driving, forgetful. She denies symptoms of depression and suicidality. She reports her main concern is memory gaps. Discussed risks, benefits and alternative treatment options. Will continue current medications. Per mother, she has not been seen by neurology. PLAN 07/30 she can't have MRI due to implantable device not compatible with MRI. may need to be referred to memory clinic in her catch area. otherwise seems stable, mood wick. 07/30: Continue current regimen and plans 07/31: Continue current regimen and plans 08/01: Continue current regimen and plans. Time Spent With Patient Time: Total time managing care of this patient today ____ minutes.
--- NOTE | 2025-08-02 17:08 | P.PNPSI_ITS ---
Subjective Subjective Date of Service: 08/02/25 Reason For Visit: unspecified depressive disorder Subjective Notes: Conditional Voluntary Medical Problems Affecting Mental Status: No Interim History: Medical record and nursing notes reviewed; case discussed during rounds with team/nursing staff, and met with patient for supportive therapy/psychoeducation, as well as medication management. Meet with patient in assigned room. Report she slept and ate well. Last BM was yesterday. Report feeling anxious but not too much for depression. She knows she is at the [facility] but could not remember how she gets there. Mood is pretty good but sometime feels confused. Report recently moved in with mom and mom's partner d/t financial problems- currently has no income. Hx of applied for SSDI/SSI but was denied. She follows psychiatrist with Adair Flores since Covid in [place] and would like to continue service with him for aftercare. Report she had treatment for lymphoma. Denies SI/SIB/HI/AVH. visible in common areas at time but mostly quiet and keep to self. She denies side effects from medication and does not wish to have meds changes at this current time. Continue with current tx plan. Some cognitive impairment. Denies dementia treatment or dx hx. SW will reach out to arrange family meeting this week. MOCA (score 21/30) and ACLS (scored 3.6) was done by OT. Medication Compliance: Yes Side effects from medications: No Attending Groups: Intermittent Review of Systems Acute medical concerns: No Medical Review of Systems: unchanged Review of Systems Review of Systems Constitutional: Denies fatigue and Denies fever(s) Cardiovascular: Denies chest pain and Denies dyspnea Respiratory: Denies dyspnea Gastrointestinal: Denies abdominal pain Psychiatric: denies suicidal ideation Endocrine: Denies fatigue Yes all other systems are reviewed and are negative Mental Status Exam Mental Status Exam Narrative: Patient is alert and oriented, pleasant. Normal speech. Good eye contact. Affect is appropriate. No signs of psychosis. Some cognitive impairment. No ALD's issues. Wearing hospital attire. Thought process is organized and on treatment. No SI/SIB/HI/AVH. Judgment and insight are poor but improved Diagnostics Vital Signs (24Hr): Vital Signs - 24 hr 08/01/25 20:00 08/01/25 20:17 08/02/25 08:00 Temperature 97.4 F 97.4 F Pulse Rate 67 67 84 Respiratory Rate 14 Blood Pressure 95/50 L 95/50 L 109/65 Pulse Oximetry 97 95 Oxygen Delivery Method Room Air Room Air BMI result Body Mass Index 26.3 Labs 07/28/25 07:21 Labs: Laboratory Results - last 48 hr 07/28/25 07:21 25-OH Vitamin D Total 23 L 25-Hydroxy Vitamin D2 <4 25-Hydroxy Vitamin D3 23 Medications Medications Current Medications Acetaminophen (Acetaminophen 325 Mg Tablet) 650 mg PO Q6H PRN PRN Reason: Headache/Pain, Scale 1-10 Last Admin: 07/28/25 08:17 Dose: 650 mg Al Hydroxide/Mg Hydroxide (Magnesium Hydrox/Alum Hydrox 30 Ml Oral.Susp) 30 ml PO Q6H PRN PRN Reason: Heartburn/Nausea Atorvastatin Calcium (Atorvastatin Calcium 40 Mg Tablet) 40 mg PO DAILY [facility] Last Admin: 08/02/25 08:30 Dose: 40 mg Carvedilol (Carvedilol 25 Mg Tablet) 12.5 mg PO BID [facility]; Protocol Last Admin: 08/02/25 08:31 Dose: 12.5 mg Fluoxetine HCl (Fluoxetine Hcl 20 Mg Capsule) 40 mg PO DAILY [facility] Last Admin: 08/02/25 08:30 Dose: 40 mg Furosemide (Furosemide 20 Mg Tablet) 10 mg PO DAILY PRN; Protocol PRN Reason: edema Hydroxyzine HCl (Hydroxyzine Hcl 25 Mg Tablet) 25 mg PO Q6H PRN PRN Reason: mild anxiety Last Admin: 08/01/25 20:54 Dose: 25 mg Lisinopril (Lisinopril 5 Mg Tablet) 5 mg PO DAILY [facility]; Protocol Last Admin: 08/02/25 08:30 Dose: 5 mg Magnesium Hydroxide (Milk Of Magnesia 30 Ml Oral.Susp) 30 ml PO DAILY PRN PRN Reason: Constipation Nicotine (Nicotine 21 Mg Patch.Td24) 21 mg TRANSDERMA DAILY PRN PRN Reason: nicotine craving Nicotine Polacrilex (Nicotine Polacrilex 2 Mg Gum) 2 mg BUCCAL Q2H PRN PRN Reason: Nicotine Cravings Trazodone HCl (Trazodone Hcl 50 Mg Tablet) 50 mg PO BEDTIME MRX1 PRN PRN Reason: Insomnia Trazodone HCl (Trazodone Hcl 50 Mg Tablet) 50 mg PO BEDTIME [facility] Last Admin: 08/01/25 20:12 Dose: 50 mg Allergies Allergies Allergy/AdvReac Type Severity Reaction Status Date / Time No Known Allergies Allergy Verified 07/27/25 22:12 Assessment & Plan Assessment & Plan (1) MDD (major depressive disorder), recurrent episode, moderate: Status: Acute Code(s): F33.1 - Major depressive disorder, recurrent, moderate (2) Cognitive impairment: Status: Acute Code(s): R41.89 - Other symptoms and signs involving cognitive functions and awareness Plan Plan Ms. Chavez is a 65 year-old woman who was brought to [facility] due to dizziness. She lives with her mother who is main caregiver and reports that patient for the past 4 years has been presenting with inability to care for herself, getting lost when driving, forgetful. She denies symptoms of depression and suicidality. She reports her main concern is memory gaps. Discussed risks, benefits and alternative treatment options. Will continue current medications. Per mother, she has not been seen by neurology. PLAN 07/30 she can't have MRI due to implantable device not compatible with MRI. may need to be referred to memory clinic in her catch area. otherwise seems stable, mood wick. 07/30: Continue current regimen and plans 07/31: Continue current regimen and plans 08/01: Continue current regimen and plans. 08/02/25: Meet with patient in assigned room. Report she slept and ate well. Last BM was yesterday. Report feeling anxious but not too much for depression. She knows she is at the [facility] but could not remember how she gets there. Mood is pretty good but sometime feels confused. Report recently moved in with mom and mom's partner d/t financial problems- currently has no income. Hx of applied for SSDI/SSI but was denied. She follows psychiatrist with Adair Flores since [facility] in [place] and would like to continue service with him for aftercare. Report she had treatment for lymphoma. Denies SI/SIB/HI/AVH. visible in common areas at time but mostly quiet and keep to self. She denies side effects from medication and does not wish to have meds changes at this current time. Continue with current tx plan. Some cognitive impairment. Denies dementia treatment or dx hx. SW will reach out to arrange family meeting this week. MOCA (score 21/30) and ACLS (scored 3.6) was done by OT. Elevated ALT/AST, low Vit D, Low total protein. Patient educated on: diagnosis, medication risk/benefits and therapeutic strategies Informed Consent: understands and further education needed Reason for continued inpatient stay Substantial Risk for: med/psych decompensation Time Spent With Patient Time: Total time managing care of this patient today ____ minutes.
[2025-08-02 20:00] VITALS: BP 98/54; PULSE 72; RESP 16; TEMP 36.3; O2SAT 98
[2025-08-02 20:50] VITALS: BP 98/54; PULSE 72
[2025-08-03 06:00] VITALS: BMI 26.1
--- NOTE | 2025-08-03 06:14 | PC.NURSE ---
Pt reports 1 episode of diarrhea during the night. Pt assisted with hygiene due to smearing of stool on her johnnies.
[2025-08-03 08:00] VITALS: BP 96/52; PULSE 62; RESP 14; TEMP 36.1; O2SAT 97
--- NOTE | 2025-08-03 14:27 | HO.PSYCHPN ---
Subjective Subjective Date of Service: 08/03/25 Reason For Visit: unspecified depressive disorder Subjective Notes: Conditional Voluntary Medical Problems Affecting Mental Status: No Interim History: Medical record and nursing notes reviewed; case discussed during rounds with team/nursing staff, and met with patient for supportive therapy/psychoeducation, as well as medication management. Per collateral information from OT/SW: patient lives with her mother and her mother's SO at home. She presented to the ED at [facility] after her family and PCP reported concerns about her inability to care for herself, overall functional and cognitive decline. Pt's family report that they have taken her car keys away as she recently got lost while driving. They note a marked and ongoing cognitive decline. Pts 86 yr old mother and her SO provide support for pts ADLs and IADLs. Pts brother is her POA and HCP. 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 Pt presents with poverty of thought and initiation. She scored a 21/30 on the MoCA indicating mild cognitive impairment with marked deficits in executive function and STM. She scored a 3.6 on the ACLS indicating a large FUNCTIONAL gap and the need for 50% cognitive assistance. Pt is MOD A for ADLs. From a functional professor to the point she lost her job, not able to care for self, move back to live with mom and mom's pattern. Mom is 86 y.o who also needs to take care of patient. Patient has not officially dx with dementia or cognitive disorder. Clinical and collateral showing that patient behaviors meet criteria for major neurocognitvie d/o. Accoding to DSM-5 criteria for dementia AKA major neurocognitive disorder: A: ?Evidence of significant cognitive decline from a previous level of performance in one or more cognitive domains*: - Learning and memory: confused and not able to process inforation, not able to manage her own finanical, lost job when college change learing/teaching system and has to do learing online training where she could not make it. - Language: some langues difficulty to express her self - Executive function: as note above from ACLS - Complex attention: poor, declined - Perceptual-motor- Social cognition B: The cognitive deficits interfere with independence in everyday activities. At a minimum, assistance should be required with complex instrumental activities of daily living, such as paying bills or managing medications: mom has to assist C: The cognitive deficits do not occur exclusively in the context of a delirium: no delirium symptoms at this time of assessment. D.?The cognitive deficits are not better explained by another mental disorder (eg, major depressive disorder, schizophrenia): patient has some mild depression symptoms but not the cause of cognitive deficits. Medication Compliance: Yes Side effects from medications: No Attending Groups: No Review of Systems Acute medical concerns: No Medical Review of Systems: unchanged Review of Systems Review of Systems Constitutional: Denies fatigue and Denies fever(s) Cardiovascular: Denies chest pain and Denies dyspnea Respiratory: Denies dyspnea Gastrointestinal: Denies abdominal pain Psychiatric: denies suicidal ideation Endocrine: Denies fatigue Yes all other systems are reviewed and are negative Mental Status Exam Mental Status Exam Narrative: Patient is alert and oriented, pleasant. Normal speech. Good eye contact. Affect is appropriate. No signs of psychosis. Some cognitive impairment. No ALD's issues. Wearing hospital attire. Thought process is organized and on treatment. No SI/SIB/HI/AVH. Judgment and insight poor-fair Diagnostics Vital Signs (24Hr): Vital Signs - 24 hr 08/02/25 20:00 08/02/25 20:50 08/03/25 08:00 Temperature 97.3 F 97 F Pulse Rate 72 72 62 Respiratory Rate 16 14 Blood Pressure 98/54 L 98/54 L 96/52 L Pulse Oximetry 98 97 Oxygen Delivery Method Room Air Room Air BMI result Body Mass Index 26.1 Labs 07/28/25 07:21 Labs: Laboratory Results - last 48 hr 07/28/25 07:21 25-OH Vitamin D Total 23 L 25-Hydroxy Vitamin D2 <4 25-Hydroxy Vitamin D3 23 Medications Medications Current Medications Acetaminophen (Acetaminophen 325 Mg Tablet) 650 mg PO Q6H PRN PRN Reason: Headache/Pain, Scale 1-10 Last Admin: 07/28/25 08:17 Dose: 650 mg Al Hydroxide/Mg Hydroxide (Magnesium Hydrox/Alum Hydrox 30 Ml Oral.Susp) 30 ml PO Q6H PRN PRN Reason: Heartburn/Nausea Atorvastatin Calcium (Atorvastatin Calcium 40 Mg Tablet) 40 mg PO DAILY [facility] Last Admin: 08/03/25 09:01 Dose: 40 mg Carvedilol (Carvedilol 25 Mg Tablet) 12.5 mg PO BID [facility]; Protocol Last Admin: 08/03/25 09:00 Dose: 12.5 mg Fluoxetine HCl (Fluoxetine Hcl 20 Mg Capsule) 40 mg PO DAILY [facility] Last Admin: 08/03/25 09:00 Dose: 40 mg Furosemide (Furosemide 20 Mg Tablet) 10 mg PO DAILY PRN; Protocol PRN Reason: edema Hydroxyzine HCl (Hydroxyzine Hcl 25 Mg Tablet) 25 mg PO Q6H PRN PRN Reason: mild anxiety Last Admin: 08/01/25 20:54 Dose: 25 mg Lisinopril (Lisinopril 5 Mg Tablet) 5 mg PO DAILY [facility]; Protocol Last Admin: 08/03/25 09:00 Dose: 5 mg Magnesium Hydroxide (Milk Of Magnesia 30 Ml Oral.Susp) 30 ml PO DAILY PRN PRN Reason: Constipation Nicotine (Nicotine 21 Mg Patch.Td24) 21 mg TRANSDERMA DAILY PRN PRN Reason: nicotine craving Nicotine Polacrilex (Nicotine Polacrilex 2 Mg Gum) 2 mg BUCCAL Q2H PRN PRN Reason: Nicotine Cravings Trazodone HCl (Trazodone Hcl 50 Mg Tablet) 50 mg PO BEDTIME MRX1 PRN PRN Reason: Insomnia Trazodone HCl (Trazodone Hcl 50 Mg Tablet) 50 mg PO BEDTIME [facility] Last Admin: 08/02/25 20:51 Dose: 50 mg Allergies Allergies Allergy/AdvReac Type Severity Reaction Status Date / Time No Known Allergies Allergy Verified 07/27/25 22:12 Assessment & Plan Assessment & Plan (1) MDD (major depressive disorder), recurrent episode, moderate: Status: Acute Code(s): F33.1 - Major depressive disorder, recurrent, moderate (2) Major neurocognitive disorder: Status: Acute Code(s): F03.90 - Unspecified dementia, unspecified severity, without behavioral disturbance, psychotic disturbance, mood disturbance, and anxiety Plan Plan Ms. Chavez is a 65 year-old woman who was brought to [email or web address] due to dizziness. She lives with her mother who is main caregiver and reports that patient for the past 4 years has been presenting with inability to care for herself, getting lost when driving, forgetful. She denies symptoms of depression and suicidality. She reports her main concern is memory gaps. Discussed risks, benefits and alternative treatment options. Will continue current medications. Per mother, she has not been seen by neurology. PLAN She scored a 21/30 on the MoCA indicating mild cognitive impairment with marked deficits in executive function and STM. She scored a 3.6 on the ACLS indicating a large FUNCTIONAL gap and the need for 50% cognitive assistance. Pt is MOD A for ADLs. 07/30 she can't have MRI due to implantable device not compatible with MRI. may need to be referred to memory clinic in her [place] area. otherwise seems stable, mood wick. 07/30: Continue current regimen and plans 07/31: Continue current regimen and plans 08/01: Continue current regimen and plans. 08/02/25: Meet with patient in assigned room. Report she slept and ate well. Last BM was yesterday. Report feeling anxious but not too much for depression. She knows she is at the [facility] but could not remember how she gets there. Mood is pretty good but sometime feels confused. Report recently moved in with mom and mom's partner d/t financial problems- currently has no income. Hx of applied for SSDI/SSI but was denied. She follows psychiatrist with Adair Flores since Covid in [place] and would like to continue service with him for aftercare. Report she had treatment for lymphoma. Denies SI/SIB/HI/AVH. visible in common areas at time but mostly quiet and keep to self. She denies side effects from medication and does not wish to have meds changes at this current time. Continue with current tx plan. Some cognitive impairment. Denies dementia treatment or dx hx. SW will reach out to arrange family meeting this week. MOCA (score 21/30) and ACLS (scored 3.6) was done by OT. Elevated ALT/AST, low Vit D, Low total protein. 08/03/25: patient meet criteria for dementia- Major neurocognitive disorder according to DSM5. Not able to care for self at home. Will schedule family meeting at some point this week. Slept for 6 hours. Medication compliant. Would benefit on medication for dementia and cognitive decline. Start on Aricept 5mg daily in the morning. Monitor for side effects. Patient educated on: diagnosis, medication risk/benefits and therapeutic strategies Informed Consent: understands and further education needed Reason for continued inpatient stay Substantial Risk for: med/psych decompensation Time Spent With Patient Time: Total time managing care of this patient today ____ minutes.
[2025-08-03 20:00] VITALS: BP 102/58; PULSE 76; RESP 16; TEMP 36.6; O2SAT 95
[2025-08-03 21:02] VITALS: BP 102/58; PULSE 76
[2025-08-04 06:00] VITALS: BMI 26.1
--- NOTE | 2025-08-04 08:17 | HO.PSYCHPN ---
Subjective Subjective Date of Service: 08/04/25 Reason For Visit: unspecified depressive disorder Subjective Notes: Conditional Voluntary Healthcare Proxy: Yes Guardianship: No Medical Problems Affecting Mental Status: No Interim History: Medical record and nursing notes reviewed; case discussed during rounds with team/nursing staff, and met with patient for supportive therapy/psychoeducation, as well as medication management. Meet with patient in the morning in assigned room, report feeling tired, not anxious or depressed today. Reviewed with patient regarding newly Dementia dx and new medication Aricept which patient started this morning. Patient is made aware of Possible GI side effects During family meeting with her HCP (sister and brother via zoom), treatment team (SW, OT, and this provider) and patient, we reviewed dx, clinical presentation, OT assessment, informed patient and family again regarding meds changes or added on. Increased Prozac up to 60mg and added Vitamin D 25mcg daily on. Lab results also reviewed and safety concerns addressed during meeting. Discharge aftercare plan reviewed and recommendation for aftercare (see LAURIE note for more details). LAURIE will refer patient to elderly services. Tentative discharge next at 1100. sister will pick patient up. Will continue to monitor for any side effects/effectiveness of medication. Patient to FLU with PCP, oncology and psychiatry. Patient walked away from the meeting at the end of the meeting but never return. Per OT, patient has the same behavior during group time as well. distracted, not able to focus/retain information in a long period of time, flat affect, depressed and anxious but agrees with the plan. Medication Compliance: Yes Side effects from medications: No Attending Groups: Intermittent Review of Systems Acute medical concerns: No Medical Review of Systems: unchanged Review of Systems Review of Systems Constitutional: Denies fatigue and Denies fever(s) Cardiovascular: Denies chest pain and Denies dyspnea Respiratory: Denies dyspnea Gastrointestinal: Denies abdominal pain Psychiatric: denies suicidal ideation Endocrine: Denies fatigue Yes all other systems are reviewed and are negative Mental Status Exam Mental Status Exam Narrative: Patient is alert and oriented, pleasant. Normal speech. Good eye contact. Affect is appropriate. No signs of psychosis. Some cognitive impairment. No ALD's issues. Wearing hospital attire. Thought process is organized and on treatment. No SI/SIB/HI/AVH. Judgment and insight poor-fair Diagnostics Vital Signs (24Hr): Vital Signs - 24 hr 08/03/25 20:00 08/03/25 21:02 Temperature 97.8 F Pulse Rate 76 76 Respiratory Rate 16 Blood Pressure 102/58 L 102/58 L Pulse Oximetry 95 Oxygen Delivery Method Room Air BMI result Body Mass Index 26.1 Labs 07/28/25 07:21 Medications Medications Current Medications Acetaminophen (Acetaminophen 325 Mg Tablet) 650 mg PO Q6H PRN PRN Reason: Headache/Pain, Scale 1-10 Last Admin: 07/28/25 08:17 Dose: 650 mg Al Hydroxide/Mg Hydroxide (Magnesium Hydrox/Alum Hydrox 30 Ml Oral.Susp) 30 ml PO Q6H PRN PRN Reason: Heartburn/Nausea Atorvastatin Calcium (Atorvastatin Calcium 40 Mg Tablet) 40 mg PO DAILY [facility] Last Admin: 08/03/25 09:01 Dose: 40 mg Carvedilol (Carvedilol 25 Mg Tablet) 12.5 mg PO BID [facility]; Protocol Last Admin: 08/03/25 21:02 Dose: 12.5 mg Donepezil HCl (Donepezil Hcl 5 Mg Tablet) 5 mg PO DAILY [facility] Fluoxetine HCl (Fluoxetine Hcl 20 Mg Capsule) 40 mg PO DAILY [facility] Last Admin: 08/03/25 09:00 Dose: 40 mg Furosemide (Furosemide 20 Mg Tablet) 10 mg PO DAILY PRN; Protocol PRN Reason: edema Hydroxyzine HCl (Hydroxyzine Hcl 25 Mg Tablet) 25 mg PO Q6H PRN PRN Reason: mild anxiety Last Admin: 08/01/25 20:54 Dose: 25 mg Lisinopril (Lisinopril 5 Mg Tablet) 5 mg PO DAILY [facility]; Protocol Last Admin: 08/03/25 09:00 Dose: 5 mg Magnesium Hydroxide (Milk Of Magnesia 30 Ml Oral.Susp) 30 ml PO DAILY PRN PRN Reason: Constipation Nicotine (Nicotine 21 Mg Patch.Td24) 21 mg TRANSDERMA DAILY PRN PRN Reason: nicotine craving Nicotine Polacrilex (Nicotine Polacrilex 2 Mg Gum) 2 mg BUCCAL Q2H PRN PRN Reason: Nicotine Cravings Trazodone HCl (Trazodone Hcl 50 Mg Tablet) 50 mg PO BEDTIME MRX1 PRN PRN Reason: Insomnia Trazodone HCl (Trazodone Hcl 50 Mg Tablet) 50 mg PO BEDTIME [facility] Last Admin: 08/03/25 21:01 Dose: 50 mg Allergies Allergies Allergy/AdvReac Type Severity Reaction Status Date / Time No Known Allergies Allergy Verified 07/27/25 22:12 Assessment & Plan Assessment & Plan (1) MDD (major depressive disorder), recurrent episode, moderate: Status: Acute Code(s): F33.1 - Major depressive disorder, recurrent, moderate (2) Major neurocognitive disorder: Status: Acute Code(s): F03.90 - Unspecified dementia, unspecified severity, without behavioral disturbance, psychotic disturbance, mood disturbance, and anxiety Plan Plan Ms. Chavez is a 65 year-old woman who was brought to [facility] due to dizziness. She lives with her mother who is main caregiver and reports that patient for the past 4 years has been presenting with inability to care for herself, getting lost when driving, forgetful. She denies symptoms of depression and suicidality. She reports her main concern is memory gaps. Discussed risks, benefits and alternative treatment options. Will continue current medications. Per mother, she has not been seen by neurology. PLAN She scored a 21/30 on the MoCA indicating mild cognitive impairment with marked deficits in executive function and STM. She scored a 3.6 on the ACLS indicating a large FUNCTIONAL gap and the need for 50% cognitive assistance. Pt is MOD A for ADLs. 07/30 she can't have MRI due to implantable device not compatible with MRI. may need to be referred to memory clinic in her [place] area. otherwise seems stable, mood wick. 07/30: Continue current regimen and plans 07/31: Continue current regimen and plans 08/01: Continue current regimen and plans. 08/02/25: Meet with patient in assigned room. Report she slept and ate well. Last BM was yesterday. Report feeling anxious but not too much for depression. She knows she is at the [facility] but could not remember how she gets there. Mood is pretty good but sometime feels confused. Report recently moved in with mom and mom's partner d/t financial problems- currently has no income. Hx of applied for SSDI/SSI but was denied. She follows psychiatrist with Adair Flores since Covid in [place] and would like to continue service with him for aftercare. Report she had treatment for lymphoma. Denies SI/SIB/HI/AVH. visible in common areas at time but mostly quiet and keep to self. She denies side effects from medication and does not wish to have meds changes at this current time. Continue with current tx plan. Some cognitive impairment. Denies dementia treatment or dx hx. LAURIE will reach out to arrange family meeting this week. MOCA (score 21/30) and ACLS (scored 3.6) was done by OT. Elevated ALT/AST, low Vit D, Low total protein. 08/03/25: patient meet criteria for dementia- Major neurocognitive disorder according to DSM5. Not able to care for self at home. Will schedule family meeting at some point this week. Slept for 6 hours. Medication compliant. Would benefit on medication for dementia and cognitive decline. Start on Aricept 5mg daily in the morning. Monitor for side effects. 08/04/25: Meet with patient in the morning in assigned room, report feeling tired, not anxious or depressed today. Reviewed with patient regarding newly Dementia dx and new medication Aricept which patient started this morning. Patient is made aware of Possible GI side effects During family meeting with her HCP (sister and brother via zoom), treatment team (SW, OT, and this provider) and patient, we reviewed dx, clinical presentation, OT assessment, informed patient and family again regarding meds changes or added on. Increased Prozac up to 60mg and added Vitamin D 25mcg daily on. Lab results also reviewed and safety concerns addressed during meeting. Discharge aftercare plan reviewed and recommendation for aftercare (see LAURIE note for more details). LAURIE will refer patient to elderly services. Tentative discharge next at 1100. sister will pick patient up. Will continue to monitor for any side effects/effectiveness of medication. Patient to FLU with PCP, oncology and psychiatry. Patient walked away from the meeting at the end of the meeting but never return. Per OT, patient has the same behavior during group time as well. distracted, not able to focus/retain information in a long period of time, flat affect, depressed and anxious but agrees with the plan. Patient educated on: diagnosis, medication risk/benefits and therapeutic strategies Informed Consent: understands and further education needed Reason for continued inpatient stay Substantial Risk for: med/psych decompensation Time Spent With Patient Time: Total time managing care of this patient today ____ minutes.
[2025-08-04 09:16] VITALS: BP 95/52; PULSE 72; RESP 16; TEMP 36.3; O2SAT 96
[2025-08-04 20:00] VITALS: BP 96/71; PULSE 66; RESP 16; O2SAT 95
[2025-08-04 20:04] VITALS: BP 96/71; PULSE 66
[2025-08-05 06:00] VITALS: BMI 26.0
[2025-08-05 08:00] VITALS: BP 104/54; PULSE 66; RESP 14; TEMP 36.2; O2SAT 94
[2025-08-05 08:51] VITALS: BP 104/59; PULSE 74
[2025-08-05 09:26] LABS: Albumin Level 3.5 g/dL (3.5-5.0); Alkaline Phosphatase 161 U/L (39-117); Anion Gap 13 (12-20); Aspartate Amino Transferase 32 U/L (5-31); Blood Urea Nitrogen 18 mg/dL (9-16); Calcium 9.4 mg/dL (8.4-10.2); Carbon Dioxide 27 mmol/L (22-29); Chloride 108 mmol/L (96-108); Creatinine Clr Calc Pharmacy 73.3; Estimated Glomerular Filt Rate > 60; Potassium 4.0 mmol/L (3.3-5.1); Sodium 144 mmol/L (135-145); Total Protein 6.7 g/dL (6.5-8.0)
[2025-08-05 09:43] LABS: Alanine Aminotransferase 39 U/L (0-31)
--- NOTE | 2025-08-05 16:23 | HO.PSYCHPN ---
Subjective Subjective Date of Service: 08/05/25 Reason For Visit: unspecified depressive disorder Subjective Notes: Conditional Voluntary Healthcare Proxy: Yes Guardianship: No Medical Problems Affecting Mental Status: No Interim History: Medical record and nursing notes reviewed; case discussed during rounds with team/nursing staff, and met with patient for supportive therapy/psychoeducation, as well as medication management. Meet with patient in dining area near TV room. Report that she slept and ate well. Have some loose stool episodes the past couple of days. Report that this sometimes happened at home as well and Clarence is familiar with her when mentioned. She does not remember the meeting happened yesterday but able to recall some details we discussed yesterday when mentioned this during 1-1 assessment. Encourage to be out and attend groups, patient says every time when I walk the devlin/outside, they asked me to go back to my room . Patient says yes to the coloring group at next table but she stands up and walk back to her room. Isolative, quiet, even when out to dinning room, patient has minimal interaction with peers and staff. Reviewed with patient again regarding medication changes and lab results with potential d/c next . Patient denies side effects. Receptive to the plan. Medication Compliance: Yes Side effects from medications: No Attending Groups: No Review of Systems Acute medical concerns: No Medical Review of Systems: unchanged Review of Systems Review of Systems Constitutional: Denies fatigue and Denies fever(s) Cardiovascular: Denies chest pain and Denies dyspnea Respiratory: Denies dyspnea Gastrointestinal: Denies abdominal pain Psychiatric: denies suicidal ideation Endocrine: Denies fatigue Yes all other systems are reviewed and are negative Mental Status Exam Mental Status Exam Narrative: Patient is alert and oriented, pleasant. Normal speech. Flat affect. Isolative Good eye contact. Affect is appropriate. No signs of psychosis. Some cognitive impairment. No ALD's issues. Wearing hospital attire. Thought process is organized and on treatment but forgetful, poor concentration . No SI/SIB/HI/AVH. Judgment and insight poor-fair Diagnostics Vital Signs (24Hr): Vital Signs - 24 hr 08/04/25 20:00 08/04/25 20:04 08/05/25 08:00 Temperature 97.2 F Pulse Rate 66 66 66 Respiratory Rate 16 14 Blood Pressure 96/71 96/71 104/54 L Pulse Oximetry 95 94 Oxygen Delivery Method Room Air Room Air 08/05/25 08:51 08/05/25 08:51 Temperature Pulse Rate 74 Respiratory Rate Blood Pressure 104/59 L 104/59 L Pulse Oximetry Oxygen Delivery Method BMI result Body Mass Index 26.0 Labs 08/05/25 07:49 Labs: Laboratory Results - last 48 hr 08/05/25 07:49 Sodium 144 Potassium 4.0 Chloride 108 Carbon Dioxide 27 Anion Gap 13 BUN 18 H Creatinine 0.75 Estim Creat Clear Calc 73.3 Estimated GFR > 60 Random Glucose 97 Calcium 9.4 Total Bilirubin 0.3 AST 32 H ALT 39 H Alkaline Phosphatase 161 H Total Protein 6.7 Albumin 3.5 Medications Medications Current Medications Acetaminophen (Acetaminophen 325 Mg Tablet) 650 mg PO Q6H PRN PRN Reason: Headache/Pain, Scale 1-10 Last Admin: 07/28/25 08:17 Dose: 650 mg Al Hydroxide/Mg Hydroxide (Magnesium Hydrox/Alum Hydrox 30 Ml Oral.Susp) 30 ml PO Q6H PRN PRN Reason: Heartburn/Nausea Atorvastatin Calcium (Atorvastatin Calcium 40 Mg Tablet) 40 mg PO DAILY [facility] Last Admin: 08/05/25 08:51 Dose: 40 mg Carvedilol (Carvedilol 25 Mg Tablet) 12.5 mg PO BID [facility]; Protocol Last Admin: 08/05/25 08:51 Dose: 12.5 mg Donepezil HCl (Donepezil Hcl 5 Mg Tablet) 5 mg PO DAILY [facility] Last Admin: 08/05/25 08:53 Dose: 5 mg Fluoxetine HCl (Fluoxetine Hcl 20 Mg Capsule) 60 mg PO DAILY [facility] Last Admin: 08/05/25 08:52 Dose: 60 mg Furosemide (Furosemide 20 Mg Tablet) 10 mg PO DAILY PRN; Protocol PRN Reason: edema Hydroxyzine HCl (Hydroxyzine Hcl 25 Mg Tablet) 25 mg PO Q6H PRN PRN Reason: mild anxiety Last Admin: 08/01/25 20:54 Dose: 25 mg Lisinopril (Lisinopril 5 Mg Tablet) 5 mg PO DAILY [facility]; Protocol Last Admin: 08/05/25 08:51 Dose: 5 mg Magnesium Hydroxide (Milk Of Magnesia 30 Ml Oral.Susp) 30 ml PO DAILY PRN PRN Reason: Constipation Nicotine (Nicotine 21 Mg Patch.Td24) 21 mg TRANSDERMA DAILY PRN PRN Reason: nicotine craving Nicotine Polacrilex (Nicotine Polacrilex 2 Mg Gum) 2 mg BUCCAL Q2H PRN PRN Reason: Nicotine Cravings Trazodone HCl (Trazodone Hcl 50 Mg Tablet) 50 mg PO BEDTIME MRX1 PRN PRN Reason: Insomnia Trazodone HCl (Trazodone Hcl 50 Mg Tablet) 50 mg PO BEDTIME [facility] Last Admin: 08/04/25 20:05 Dose: 50 mg Vitamin D (Cholecalciferol (Vitamin D3) 25 Mcg Tablet) 25 mcg PO DAILY [facility] Last Admin: 08/05/25 08:51 Dose: 25 mcg Allergies Allergies Allergy/AdvReac Type Severity Reaction Status Date / Time No Known Allergies Allergy Verified 07/27/25 22:12 Assessment & Plan Assessment & Plan (1) MDD (major depressive disorder), recurrent episode, moderate: Status: Acute Code(s): F33.1 - Major depressive disorder, recurrent, moderate (2) Major neurocognitive disorder: Status: Acute Code(s): F03.90 - Unspecified dementia, unspecified severity, without behavioral disturbance, psychotic disturbance, mood disturbance, and anxiety Plan Plan Ms. Chavez is a 65 year-old woman who was brought to [facility] due to dizziness. She lives with her mother who is main caregiver and reports that patient for the past 4 years has been presenting with inability to care for herself, getting lost when driving, forgetful. She denies symptoms of depression and suicidality. She reports her main concern is memory gaps. Discussed risks, benefits and alternative treatment options. Will continue current medications. Per mother, she has not been seen by neurology. PLAN She scored a 21/30 on the MoCA indicating mild cognitive impairment with marked deficits in executive function and STM. She scored a 3.6 on the ACLS indicating a large FUNCTIONAL gap and the need for 50% cognitive assistance. Pt is MOD A for ADLs. 07/30 she can't have MRI due to implantable device not compatible with MRI. may need to be referred to memory clinic in [place] area. otherwise seems stable, mood wick. 07/30: Continue current regimen and plans 07/31: Continue current regimen and plans 08/01: Continue current regimen and plans. 08/02/25: Meet with patient in assigned room. Report she slept and ate well. Last BM was yesterday. Report feeling anxious but not too much for depression. She knows she is at the [facility] but could not remember how she gets there. Mood is pretty good but sometime feels confused. Report recently moved in with mom and mom's partner d/t financial problems- currently has no income. Hx of applied for SSDI/SSI but was denied. She follows psychiatrist with Adair Flores since Covid in [place] and would like to continue service with him for aftercare. Report she had treatment for lymphoma. Denies SI/SIB/HI/AVH. visible in common areas at time but mostly quiet and keep to self. She denies side effects from medication and does not wish to have meds changes at this current time. Continue with current tx plan. Some cognitive impairment. Denies dementia treatment or dx hx. LAURIE will reach out to arrange family meeting this week. MOCA (score 21/30) and ACLS (scored 3.6) was done by OT. Elevated ALT/AST, low Vit D, Low total protein. 08/03/25: patient meet criteria for dementia- Major neurocognitive disorder according to DSM5. Not able to care for self at home. Will schedule family meeting at some point this week. Slept for 6 hours. Medication compliant. Would benefit on medication for dementia and cognitive decline. Start on Aricept 5mg daily in the morning. Monitor for side effects. 08/04/25: Meet with patient in the morning in assigned room, report feeling tired, not anxious or depressed today. Reviewed with patient regarding newly Dementia dx and new medication Aricept which patient started this morning. Patient is made aware of Possible GI side effects During family meeting with her HCP (sister and brother via zoom), treatment team (LAURIE, OT, and this provider) and patient, we reviewed dx, clinical presentation, OT assessment, informed patient and family again regarding meds changes or added on. Increased Prozac up to 60mg and added Vitamin D 25mcg daily on. Lab results also reviewed and safety concerns addressed during meeting. Discharge aftercare plan reviewed and recommendation for aftercare (see LAURIE note for more details). LAURIE will refer patient to elderly services. Tentative discharge next at 1100. sister will pick patient up. Will continue to monitor for any side effects/effectiveness of medication. Patient to FLU with PCP, oncology and psychiatry. Patient walked away from the meeting at the end of the meeting but never return. Per OT, patient has the same behavior during group time as well. distracted, not able to focus/retain information in a long period of time, flat affect, depressed and anxious but agrees with the plan. 08/05/24: Meet with patient in dining area near TV room. Report that she slept and ate well. Have some loose stool episodes the past couple of days. Report that this sometimes happened at home as well and Clarence is familiar with her when mentioned. She does not remember the meeting happened yesterday but able to recall some details we discussed yesterday when mentioned this during 1-1 assessment. Encourage to be out and attend groups, patient says every time when I walk the devlin/outside, they asked me to go back to my room . Patient says yes to the coloring group at next table but she stands up and walk back to her room. Isolative, quiet, even when out to dinning room, patient has minimal interaction with peers and staff. Reviewed with patient again regarding medication changes and lab results with potential d/c next . Patient denies side effects. Receptive to the plan. ALT/ AST level is improved. Slightly elevated on BUN. Lytes are WNL. Patient educated on: diagnosis, medication risk/benefits and therapeutic strategies Informed Consent: further education needed Reason for continued inpatient stay Substantial Risk for: med/psych decompensation Time Spent With Patient Time: Total time managing care of this patient today ____ minutes.
[2025-08-05 20:00] VITALS: BP 101/60; PULSE 68; RESP 16; TEMP 36.5; O2SAT 97
[2025-08-06 07:19] VITALS: BMI 26.2
[2025-08-06 08:00] VITALS: BP 108/57; PULSE 70; RESP 14; O2SAT 96
[2025-08-06 19:41] VITALS: BP 104/54; PULSE 70; TEMP 36.7; O2SAT 95
--- NOTE | 2025-08-06 20:22 | P.PNPSI_ITS ---
Subjective Subjective Date of Service: 08/06/25 Reason For Visit: unspecified depressive disorder Subjective Notes: Conditional Voluntary Healthcare Proxy: Yes Guardianship: No Medical Problems Affecting Mental Status: No Interim History: Medical record and nursing notes reviewed; case discussed during rounds with team/nursing staff, and met with patient for supportive therapy/psychoeducation, as well as medication management. Patient slept well last night, continued to report having diarrhea/loose stools and and heartburn. Order Imodium and Tums. Compliant with medications, reports some back pain even Tylenol with good effect. Patient is quiet, wondering the devlin, not interacting with peers or staff unless approached. Continue to monitor and offer Imodium for loose stool. Medication Compliance: Yes Side effects from medications: No Attending Groups: No Review of Systems Acute medical concerns: No Medical Review of Systems: unchanged Review of Systems Review of Systems Constitutional: Denies fatigue and Denies fever(s) Cardiovascular: Denies chest pain and Denies dyspnea Respiratory: Denies dyspnea Gastrointestinal: Denies abdominal pain. However, reports loose stool and heart burn Psychiatric: denies suicidal ideation Endocrine: Denies fatigue Yes all other systems are reviewed and are negative Mental Status Exam Mental Status Exam Narrative: Patient is alert and oriented, pleasant. Normal speech. Flat affect. Isolative Good eye contact. Affect is appropriate. No signs of psychosis. Some cognitive impairment. No ALD's issues. Wearing hospital attire. Thought process is organized and on treatment but forgetful, poor concentration . No SI/SIB/HI/AVH. Judgment and insight poor-fair Diagnostics Vital Signs (24Hr): Vital Signs - 24 hr 08/06/25 08:00 08/06/25 19:41 Temperature 98.1 F Pulse Rate 70 70 Respiratory Rate 14 Blood Pressure 108/57 L 104/54 L Pulse Oximetry 96 95 Oxygen Delivery Method Room Air BMI result Body Mass Index 26.2 Labs 08/05/25 07:49 Labs: Laboratory Results - last 48 hr 08/05/25 07:49 Sodium 144 Potassium 4.0 Chloride 108 Carbon Dioxide 27 Anion Gap 13 BUN 18 H Creatinine 0.75 Estim Creat Clear Calc 73.3 Estimated GFR > 60 Random Glucose 97 Calcium 9.4 Total Bilirubin 0.3 AST 32 H ALT 39 H Alkaline Phosphatase 161 H Total Protein 6.7 Albumin 3.5 Medications Medications Current Medications Acetaminophen (Acetaminophen 325 Mg Tablet) 650 mg PO Q6H PRN PRN Reason: Headache/Pain, Scale 1-10 Last Admin: 08/06/25 09:29 Dose: 650 mg Al Hydroxide/Mg Hydroxide (Magnesium Hydrox/Alum Hydrox 30 Ml Oral.Susp) 30 ml PO Q6H PRN PRN Reason: Heartburn/Nausea Atorvastatin Calcium (Atorvastatin Calcium 40 Mg Tablet) 40 mg PO DAILY [facility] Last Admin: 08/06/25 09:06 Dose: 40 mg Calcium Carbonate (Calcium Carbonate 750 Mg Tab.Chew) 750 mg PO Q4H PRN PRN Reason: Heartburn Last Admin: 08/06/25 10:04 Dose: 750 mg Carvedilol (Carvedilol 25 Mg Tablet) 12.5 mg PO BID [facility]; Protocol Last Admin: 08/06/25 09:06 Dose: 12.5 mg Donepezil HCl (Donepezil Hcl 5 Mg Tablet) 5 mg PO DAILY [facility] Last Admin: 08/06/25 09:07 Dose: 5 mg Fluoxetine HCl (Fluoxetine Hcl 20 Mg Capsule) 60 mg PO DAILY [facility] Last Admin: 08/06/25 09:07 Dose: 60 mg Furosemide (Furosemide 20 Mg Tablet) 10 mg PO DAILY PRN; Protocol PRN Reason: edema Hydroxyzine HCl (Hydroxyzine Hcl 25 Mg Tablet) 25 mg PO Q6H PRN PRN Reason: mild anxiety Last Admin: 08/01/25 20:54 Dose: 25 mg Lisinopril (Lisinopril 5 Mg Tablet) 5 mg PO DAILY [facility]; Protocol Last Admin: 08/06/25 09:05 Dose: 5 mg Loperamide HCl (Loperamide Hcl 2 Mg Capsule) 4 mg PO Q4H PRN PRN Reason: Diarrhea Last Admin: 08/06/25 10:03 Dose: 4 mg Magnesium Hydroxide (Milk Of Magnesia 30 Ml Oral.Susp) 30 ml PO DAILY PRN PRN Reason: Constipation Nicotine (Nicotine 21 Mg Patch.Td24) 21 mg TRANSDERMA DAILY PRN PRN Reason: nicotine craving Nicotine Polacrilex (Nicotine Polacrilex 2 Mg Gum) 2 mg BUCCAL Q2H PRN PRN Reason: Nicotine Cravings Trazodone HCl (Trazodone Hcl 50 Mg Tablet) 50 mg PO BEDTIME MRX1 PRN PRN Reason: Insomnia Trazodone HCl (Trazodone Hcl 50 Mg Tablet) 50 mg PO BEDTIME [facility] Last Admin: 08/05/25 20:32 Dose: 50 mg Vitamin D (Cholecalciferol (Vitamin D3) 25 Mcg Tablet) 25 mcg PO DAILY [facility] Last Admin: 08/06/25 09:06 Dose: 25 mcg Allergies Allergies Allergy/AdvReac Type Severity Reaction Status Date / Time No Known Allergies Allergy Verified 07/27/25 22:12 Assessment & Plan Assessment & Plan (1) MDD (major depressive disorder), recurrent episode, moderate: Status: Acute Code(s): F33.1 - Major depressive disorder, recurrent, moderate (2) Major neurocognitive disorder: Status: Acute Code(s): F03.90 - Unspecified dementia, unspecified severity, without behavioral disturbance, psychotic disturbance, mood disturbance, and anxiety Plan Plan Ms. Chavez is a 65 year-old woman who was brought to [facility] due to dizziness. She lives with her mother who is main caregiver and reports that patient for the past 4 years has been presenting with inability to care for herself, getting lost when driving, forgetful. She denies symptoms of depression and suicidality. She reports her main concern is memory gaps. Discussed risks, benefits and alternative treatment options. Will continue current medications. Per mother, she has not been seen by neurology. PLAN She scored a 21/30 on the MoCA indicating mild cognitive impairment with marked deficits in executive function and STM. She scored a 3.6 on the ACLS indicating a large FUNCTIONAL gap and the need for 50% cognitive assistance. Pt is MOD A for ADLs. 07/30 she can't have MRI due to implantable device not compatible with MRI. may need to be referred to memory clinic in her [place] area. otherwise seems stable, mood wick. 07/30: Continue current regimen and plans 07/31: Continue current regimen and plans 08/01: Continue current regimen and plans. 08/02/25: Meet with patient in assigned room. Report she slept and ate well. Last BM was yesterday. Report feeling anxious but not too much for depression. She knows she is at the [facility] but could not remember how she gets there. Mood is pretty good but sometime feels confused. Report recently moved in with mom and mom's partner d/t financial problems- currently has no income. Hx of applied for SSDI/SSI but was denied. She follows psychiatrist with Adair Flores since Covid in [place] and would like to continue service with him for aftercare. Report she had treatment for lymphoma. Denies SI/SIB/HI/AVH. visible in common areas at time but mostly quiet and keep to self. She denies side effects from medication and does not wish to have meds changes at this current time. Continue with current tx plan. Some cognitive impairment. Denies dementia treatment or dx hx. LAURIE will reach out to arrange family meeting this week. MOCA (score 21/30) and ACLS (scored 3.6) was done by OT. Elevated ALT/AST, low Vit D, Low total protein. 08/03/25: patient meet criteria for dementia- Major neurocognitive disorder according to DSM5. Not able to care for self at home. Will schedule family meeting at some point this week. Slept for 6 hours. Medication compliant. Would benefit on medication for dementia and cognitive decline. Start on Aricept 5mg daily in the morning. Monitor for side effects. 08/04/25: Meet with patient in the morning in assigned room, report feeling tired, not anxious or depressed today. Reviewed with patient regarding newly Dementia dx and new medication Aricept which patient started this morning. Patient is made aware of Possible GI side effects During family meeting with her HCP (sister and brother via zoom), treatment team (SW, OT, and this provider) and patient, we reviewed dx, clinical presentation, OT assessment, informed patient and family again regarding meds changes or added on. Increased Prozac up to 60mg and added Vitamin D 25mcg daily on. Lab results also reviewed and safety concerns addressed during meeting. Discharge aftercare plan reviewed and recommendation for aftercare (see LAURIE note for more details). LAURIE will refer patient to elderly services. Tentative discharge next at 1100. sister will pick patient up. Will continue to monitor for any side effects/effectiveness of medication. Patient to FLU with PCP, oncology and psychiatry. Patient walked away from the meeting at the end of the meeting but never return. Per OT, patient has the same behavior during group time as well. distracted, not able to focus/retain information in a long period of time, flat affect, depressed and anxious but agrees with the plan. 08/05/24: Meet with patient in dining area near TV room. Report that she slept and ate well. Have some loose stool episodes the past couple of days. Report that this sometimes happened at home as well and Clarence is familiar with her when mentioned. She does not remember the meeting happened yesterday but able to recall some details we discussed yesterday when mentioned this during 1-1 assessment. Encourage to be out and attend groups, patient says every time when I walk the devlin/outside, they asked me to go back to my room . Patient says yes to the coloring group at next table but she stands up and walk back to her room. Isolative, quiet, even when out to dinning room, patient has minimal interaction with peers and staff. Reviewed with patient again regarding medication changes and lab results with potential d/c next . Patient denies side effects. Receptive to the plan. ALT/ AST level is improved. Slightly elevated on BUN. Lytes are WNL. 08/06/25: Patient slept well last night, continued to report having diarrhea/loose stools and and heartburn. Order Imodium and Tums. Compliant with medications, reports some back pain even Tylenol with good effect. Patient is quiet, wondering the devlin, not interacting with peers or staff unless approached. Continue to monitor and offer Imodium for loose stool. Patient educated on: diagnosis, medication risk/benefits and therapeutic strategies Informed Consent: understands and further education needed Reason for continued inpatient stay Substantial Risk for: med/psych decompensation Time Spent With Patient Time: Total time managing care of this patient today ____ minutes.
[2025-08-06 21:24] VITALS: BP 104/57; PULSE 70
[2025-08-07 06:00] VITALS: BMI 26.3
[2025-08-07 08:00] VITALS: BP 90/56; PULSE 61; RESP 16; TEMP 36.3; O2SAT 96
--- NOTE | 2025-08-07 11:48 | HO.PSYCHPN ---
Subjective Subjective Date of Service: 08/07/25 Reason For Visit: unspecified depressive disorder Subjective Notes: Conditional Voluntary Healthcare Proxy: Yes Guardianship: No Medical Problems Affecting Mental Status: No Interim History: Medical record and nursing notes reviewed; case discussed during rounds with team/nursing staff, and met with patient for supportive therapy/psychoeducation, as well as medication management. Patient slept through the night, medication compliant. Denies side effects. Reports no loose stools today, denies stomach issues. Patient appeared to be brighter, smile happy released moments. Reports she feels better. Remind patient regarding discharge this as she is forgetful. Denies suicidal thoughts and other safety concerns or voices. Medication Compliance: Yes Side effects from medications: No Attending Groups: No Review of Systems Acute medical concerns: No Medical Review of Systems: unchanged Review of Systems Review of Systems Constitutional: Denies fatigue and Denies fever(s) Cardiovascular: Denies chest pain and Denies dyspnea Respiratory: Denies dyspnea Gastrointestinal: Denies abdominal pain. Psychiatric: denies suicidal ideation Endocrine: Denies fatigue Yes all other systems are reviewed and are negative Mental Status Exam Mental Status Exam Narrative: Patient is alert and oriented, pleasant. Normal speech. Flat affect. Isolative Good eye contact. Affect is appropriate. No signs of psychosis. Some cognitive impairment. No ALD's issues. Wearing hospital attire. Thought process is organized and on treatment but forgetful, poor concentration . No SI/SIB/HI/AVH. Judgment and insight is fair Diagnostics Vital Signs (24Hr): Vital Signs - 24 hr 08/06/25 19:41 08/06/25 21:24 Temperature 98.1 F Pulse Rate 70 70 Blood Pressure 104/54 L 104/57 L Pulse Oximetry 95 Oxygen Delivery Method Room Air BMI result Body Mass Index 26.3 Labs 08/05/25 07:49 Medications Medications Current Medications Acetaminophen (Acetaminophen 325 Mg Tablet) 650 mg PO Q6H PRN PRN Reason: Headache/Pain, Scale 1-10 Last Admin: 08/06/25 21:23 Dose: 650 mg Al Hydroxide/Mg Hydroxide (Magnesium Hydrox/Alum Hydrox 30 Ml Oral.Susp) 30 ml PO Q6H PRN PRN Reason: Heartburn/Nausea Atorvastatin Calcium (Atorvastatin Calcium 40 Mg Tablet) 40 mg PO DAILY [facility] Last Admin: 08/07/25 09:06 Dose: 40 mg Calcium Carbonate (Calcium Carbonate 750 Mg Tab.Chew) 750 mg PO Q4H PRN PRN Reason: Heartburn Last Admin: 08/06/25 10:04 Dose: 750 mg Carvedilol (Carvedilol 25 Mg Tablet) 12.5 mg PO BID [facility]; Protocol Last Admin: 08/07/25 09:14 Dose: Not Given Donepezil HCl (Donepezil Hcl 5 Mg Tablet) 5 mg PO DAILY [facility] Last Admin: 08/07/25 09:06 Dose: 5 mg Fluoxetine HCl (Fluoxetine Hcl 20 Mg Capsule) 60 mg PO DAILY [facility] Last Admin: 08/07/25 09:06 Dose: 60 mg Furosemide (Furosemide 20 Mg Tablet) 10 mg PO DAILY PRN; Protocol PRN Reason: edema Hydroxyzine HCl (Hydroxyzine Hcl 25 Mg Tablet) 25 mg PO Q6H PRN PRN Reason: mild anxiety Last Admin: 08/01/25 20:54 Dose: 25 mg Lisinopril (Lisinopril 5 Mg Tablet) 5 mg PO DAILY [facility]; Protocol Last Admin: 08/07/25 09:15 Dose: Not Given Loperamide HCl (Loperamide Hcl 2 Mg Capsule) 4 mg PO Q4H PRN PRN Reason: Diarrhea Last Admin: 08/06/25 10:03 Dose: 4 mg Magnesium Hydroxide (Milk Of Magnesia 30 Ml Oral.Susp) 30 ml PO DAILY PRN PRN Reason: Constipation Nicotine (Nicotine 21 Mg Patch.Td24) 21 mg TRANSDERMA DAILY PRN PRN Reason: nicotine craving Nicotine Polacrilex (Nicotine Polacrilex 2 Mg Gum) 2 mg BUCCAL Q2H PRN PRN Reason: Nicotine Cravings Trazodone HCl (Trazodone Hcl 50 Mg Tablet) 50 mg PO BEDTIME MRX1 PRN PRN Reason: Insomnia Trazodone HCl (Trazodone Hcl 50 Mg Tablet) 50 mg PO BEDTIME [facility] Last Admin: 08/06/25 21:24 Dose: 50 mg Vitamin D (Cholecalciferol (Vitamin D3) 25 Mcg Tablet) 25 mcg PO DAILY [facility] Last Admin: 08/07/25 09:06 Dose: 25 mcg Allergies Allergies Allergy/AdvReac Type Severity Reaction Status Date / Time No Known Allergies Allergy Verified 07/27/25 22:12 Assessment & Plan Assessment & Plan (1) MDD (major depressive disorder), recurrent episode, moderate: Status: Acute Code(s): F33.1 - Major depressive disorder, recurrent, moderate (2) Major neurocognitive disorder: Status: Acute Code(s): F03.90 - Unspecified dementia, unspecified severity, without behavioral disturbance, psychotic disturbance, mood disturbance, and anxiety Plan Plan Ms. Chavez is a 65 year-old woman who was brought to [facility] due to dizziness. She lives with her mother who is main caregiver and reports that patient for the past 4 years has been presenting with inability to care for herself, getting lost when driving, forgetful. She denies symptoms of depression and suicidality. She reports her main concern is memory gaps. Discussed risks, benefits and alternative treatment options. Will continue current medications. Per mother, she has not been seen by neurology. PLAN She scored a 21/30 on the MoCA indicating mild cognitive impairment with marked deficits in executive function and STM. She scored a 3.6 on the ACLS indicating a large FUNCTIONAL gap and the need for 50% cognitive assistance. Pt is MOD A for ADLs. 07/30 she can't have MRI due to implantable device not compatible with MRI. may need to be referred to memory clinic in her [place] area. otherwise seems stable, mood wick. 07/30: Continue current regimen and plans 07/31: Continue current regimen and plans 08/01: Continue current regimen and plans. 08/02/25: Meet with patient in assigned room. Report she slept and ate well. Last BM was yesterday. Report feeling anxious but not too much for depression. She knows she is at the [facility] but could not remember how she gets there. Mood is pretty good but sometime feels confused. Report recently moved in with mom and mom's partner d/t financial problems- currently has no income. Hx of applied for SSDI/SSI but was denied. She follows psychiatrist with Adair Flores since Covid in [place] and would like to continue service with him for aftercare. Report she had treatment for lymphoma. Denies SI/SIB/HI/AVH. visible in common areas at time but mostly quiet and keep to self. She denies side effects from medication and does not wish to have meds changes at this current time. Continue with current tx plan. Some cognitive impairment. Denies dementia treatment or dx hx. SW will reach out to arrange family meeting this week. MOCA (score 21/30) and ACLS (scored 3.6) was done by OT. Elevated ALT/AST, low Vit D, Low total protein. 08/03/25: patient meet criteria for dementia- Major neurocognitive disorder according to DSM5. Not able to care for self at home. Will schedule family meeting at some point this week. Slept for 6 hours. Medication compliant. Would benefit on medication for dementia and cognitive decline. Start on Aricept 5mg daily in the morning. Monitor for side effects. 08/04/25: Meet with patient in the morning in assigned room, report feeling tired, not anxious or depressed today. Reviewed with patient regarding newly Dementia dx and new medication Aricept which patient started this morning. Patient is made aware of Possible GI side effects During family meeting with her HCP (sister and brother via zoom), treatment team (SW, OT, and this provider) and patient, we reviewed dx, clinical presentation, OT assessment, informed patient and family again regarding meds changes or added on. Increased Prozac up to 60mg and added Vitamin D 25mcg daily on. Lab results also reviewed and safety concerns addressed during meeting. Discharge aftercare plan reviewed and recommendation for aftercare (see LAURIE note for more details). LAURIE will refer patient to elderly services. Tentative discharge next at 1100. sister will pick patient up. Will continue to monitor for any side effects/effectiveness of medication. Patient to FLU with PCP, oncology and psychiatry. Patient walked away from the meeting at the end of the meeting but never return. Per OT, patient has the same behavior during group time as well. distracted, not able to focus/retain information in a long period of time, flat affect, depressed and anxious but agrees with the plan. 08/05/24: Meet with patient in dining area near TV room. Report that she slept and ate well. Have some loose stool episodes the past couple of days. Report that this sometimes happened at home as well and [employer] is familiar with her when mentioned. She does not remember the meeting happened yesterday but able to recall some details we discussed yesterday when mentioned this during 1-1 assessment. Encourage to be out and attend groups, patient says every time when I walk the devlin/outside, they asked me to go back to my room . Patient says yes to the coloring group at next table but she stands up and walk back to her room. Isolative, quiet, even when out to dinning room, patient has minimal interaction with peers and staff. Reviewed with patient again regarding medication changes and lab results with potential d/c next . Patient denies side effects. Receptive to the plan. ALT/ AST level is improved. Slightly elevated on BUN. Lytes are WNL. 08/06/25: Patient slept well last night, continued to report having diarrhea/loose stools and and heartburn. Order Imodium and Tums. Compliant with medications, reports some back pain even Tylenol with good effect. Patient is quiet, wondering the devlin, not interacting with peers or staff unless approached. Continue to monitor and offer Imodium for loose stool. 08/07/25: Patient slept through the night, medication compliant. Denies side effects. Reports no loose stools today, denies stomach issues. Patient appeared to be brighter, smile happy released moments. Reports she feels better. Remind patient regarding discharge this as she is forgetful. Denies suicidal thoughts and other safety concerns or voices. Patient educated on: medication risk/benefits and therapeutic strategies Informed Consent: understands and further education needed Reason for continued inpatient stay Substantial Risk for: med/psych decompensation Time Spent With Patient Time: Total time managing care of this patient today ____ minutes.
[2025-08-07 20:00] VITALS: BP 110/55; PULSE 66; RESP 16; TEMP 36.7
[2025-08-07 21:02] VITALS: BP 110/55; PULSE 66
[2025-08-08 05:59] VITALS: BMI 25.9
[2025-08-08 08:00] VITALS: BP 125/67; PULSE 64; RESP 14; TEMP 36.3; O2SAT 95
[2025-08-08] MEDS: Magnesium Hydrox/Alum Hydrox 30 ML ORAL.SUSP PO (14:13)
[2025-08-08 20:00] VITALS: BP 97/51; PULSE 70; RESP 16; TEMP 36.6; O2SAT 98
--- NOTE | 2025-08-08 20:45 | HO.PSYCHPN ---
Subjective Subjective Date of Service: 08/08/25 Reason For Visit: unspecified depressive disorder Subjective Notes: Conditional Voluntary Healthcare Proxy: Yes Guardianship: No Medical Problems Affecting Mental Status: No Interim History: Medical record and nursing notes reviewed; case discussed during rounds with team/nursing staff, and met with patient for supportive therapy/psychoeducation, as well as medication management. Slept for 6 hours, eat well, meds compliant. Denies side effects but report feeling dizzy when changing position this morning with very mild heart burn. Denies anxiety and depression. Brighter affect. Given information regarding Aricept and reviewed with patient of possible GI as side effects. Patient has not attended groups states that she will try today. However, patient just wandering and go back to her room. Medication Compliance: Yes Side effects from medications: Yes (dizziness with mild heart burn. ) Review of Systems Acute medical concerns: No Medical Review of Systems: unchanged Review of Systems Review of Systems Constitutional: Denies fatigue and Denies fever(s) Cardiovascular: Denies chest pain and Denies dyspnea Respiratory: Denies dyspnea Gastrointestinal: Denies abdominal pain. Psychiatric: denies suicidal ideation Endocrine: Denies fatigue Yes all other systems are reviewed and are negative Mental Status Exam Mental Status Exam Narrative: Patient is alert and oriented, pleasant. Normal speech. Brighter affect. More visible in dining area. Good eye contact. Affect is appropriate. No signs of psychosis. Cognitive impairment. No ALD's issues. Wearing hospital attire, some blood stain on right sleeve hospital attire. Thought process is organized and on treatment but forgetful, poor concentration . No SI/SIB/HI/AVH. Judgment and insight is fair Diagnostics Vital Signs (24Hr): Vital Signs - 24 hr 08/07/25 21:02 08/08/25 08:00 Temperature 97.3 F Pulse Rate 66 64 Respiratory Rate 14 Blood Pressure 110/55 L 125/67 Pulse Oximetry 95 Oxygen Delivery Method Room Air BMI result Body Mass Index 25.9 Labs 08/05/25 07:49 Medications Medications Current Medications Acetaminophen (Acetaminophen 325 Mg Tablet) 650 mg PO Q6H PRN PRN Reason: Headache/Pain, Scale 1-10 Last Admin: 08/06/25 21:23 Dose: 650 mg Al Hydroxide/Mg Hydroxide (Magnesium Hydrox/Alum Hydrox 30 Ml Oral.Susp) 30 ml PO Q6H PRN PRN Reason: Heartburn/Nausea Last Admin: 08/08/25 14:13 Dose: 30 ml Atorvastatin Calcium (Atorvastatin Calcium 40 Mg Tablet) 40 mg PO DAILY [facility] Last Admin: 08/08/25 09:04 Dose: 40 mg Calcium Carbonate (Calcium Carbonate 750 Mg Tab.Chew) 750 mg PO Q4H PRN PRN Reason: Heartburn Last Admin: 08/08/25 13:41 Dose: 750 mg Carvedilol (Carvedilol 25 Mg Tablet) 12.5 mg PO BID [facility]; Protocol Last Admin: 08/08/25 09:04 Dose: 12.5 mg Donepezil HCl (Donepezil Hcl 5 Mg Tablet) 5 mg PO DAILY [facility] Last Admin: 08/08/25 09:05 Dose: 5 mg Fluoxetine HCl (Fluoxetine Hcl 20 Mg Capsule) 60 mg PO DAILY [facility] Last Admin: 08/08/25 09:04 Dose: 60 mg Furosemide (Furosemide 20 Mg Tablet) 10 mg PO DAILY PRN; Protocol PRN Reason: edema Hydroxyzine HCl (Hydroxyzine Hcl 25 Mg Tablet) 25 mg PO Q6H PRN PRN Reason: mild anxiety Last Admin: 08/01/25 20:54 Dose: 25 mg Lisinopril (Lisinopril 5 Mg Tablet) 5 mg PO DAILY [facility]; Protocol Last Admin: 08/08/25 09:04 Dose: 5 mg Loperamide HCl (Loperamide Hcl 2 Mg Capsule) 4 mg PO Q4H PRN PRN Reason: Diarrhea Last Admin: 08/06/25 10:03 Dose: 4 mg Magnesium Hydroxide (Milk Of Magnesia 30 Ml Oral.Susp) 30 ml PO DAILY PRN PRN Reason: Constipation Nicotine (Nicotine 21 Mg Patch.Td24) 21 mg TRANSDERMA DAILY PRN PRN Reason: nicotine craving Nicotine Polacrilex (Nicotine Polacrilex 2 Mg Gum) 2 mg BUCCAL Q2H PRN PRN Reason: Nicotine Cravings Trazodone HCl (Trazodone Hcl 50 Mg Tablet) 50 mg PO BEDTIME MRX1 PRN PRN Reason: Insomnia Trazodone HCl (Trazodone Hcl 50 Mg Tablet) 50 mg PO BEDTIME [facility] Last Admin: 08/07/25 20:55 Dose: 50 mg Vitamin D (Cholecalciferol (Vitamin D3) 25 Mcg Tablet) 25 mcg PO DAILY [facility] Last Admin: 08/08/25 09:05 Dose: 25 mcg Allergies Allergies Allergy/AdvReac Type Severity Reaction Status Date / Time No Known Allergies Allergy Verified 07/27/25 22:12 Assessment & Plan Assessment & Plan (1) MDD (major depressive disorder), recurrent episode, moderate: Status: Acute Code(s): F33.1 - Major depressive disorder, recurrent, moderate (2) Major neurocognitive disorder: Status: Acute Code(s): F03.90 - Unspecified dementia, unspecified severity, without behavioral disturbance, psychotic disturbance, mood disturbance, and anxiety Plan Plan Ms. Chavez is a 65 year-old woman who was brought to [facility] due to dizziness. She lives with her mother who is main caregiver and reports that patient for the past 4 years has been presenting with inability to care for herself, getting lost when driving, forgetful. She denies symptoms of depression and suicidality. She reports her main concern is memory gaps. Discussed risks, benefits and alternative treatment options. Will continue current medications. Per mother, she has not been seen by neurology. PLAN She scored a 21/30 on the MoCA indicating mild cognitive impairment with marked deficits in executive function and STM. She scored a 3.6 on the ACLS indicating a large FUNCTIONAL gap and the need for 50% cognitive assistance. Pt is MOD A for ADLs. 07/30 she can't have MRI due to implantable device not compatible with MRI. may need to be referred to memory clinic in her [place] area. otherwise seems stable, mood wick. 07/30: Continue current regimen and plans 07/31: Continue current regimen and plans 08/01: Continue current regimen and plans. 08/02/25: Meet with patient in assigned room. Report she slept and ate well. Last BM was yesterday. Report feeling anxious but not too much for depression. She knows she is at the [facility] but could not remember how she gets there. Mood is pretty good but sometime feels confused. Report recently moved in with mom and mom's partner d/t financial problems- currently has no income. Hx of applied for SSDI/SSI but was denied. She follows psychiatrist with Adair Flores since Covid in [place] and would like to continue service with him for aftercare. Report she had treatment for lymphoma. Denies SI/SIB/HI/AVH. visible in common areas at time but mostly quiet and keep to self. She denies side effects from medication and does not wish to have meds changes at this current time. Continue with current tx plan. Some cognitive impairment. Denies dementia treatment or dx hx. LAURIE will reach out to arrange family meeting this week. MOCA (score 21/30) and ACLS (scored 3.6) was done by OT. Elevated ALT/AST, low Vit D, Low total protein. 08/03/25: patient meet criteria for dementia- Major neurocognitive disorder according to DSM5. Not able to care for self at home. Will schedule family meeting at some point this week. Slept for 6 hours. Medication compliant. Would benefit on medication for dementia and cognitive decline. Start on Aricept 5mg daily in the morning. Monitor for side effects. 08/04/25: Meet with patient in the morning in assigned room, report feeling tired, not anxious or depressed today. Reviewed with patient regarding newly Dementia dx and new medication Aricept which patient started this morning. Patient is made aware of Possible GI side effects During family meeting with her HCP (sister and brother via zoom), treatment team (SW, OT, and this provider) and patient, we reviewed dx, clinical presentation, OT assessment, informed patient and family again regarding meds changes or added on. Increased Prozac up to 60mg and added Vitamin D 25mcg daily on. Lab results also reviewed and safety concerns addressed during meeting. Discharge aftercare plan reviewed and recommendation for aftercare (see LAURIE note for more details). LAURIE will refer patient to elderly services. Tentative discharge next at 1100. sister will pick patient up. Will continue to monitor for any side effects/effectiveness of medication. Patient to FLU with PCP, oncology and psychiatry. Patient walked away from the meeting at the end of the meeting but never return. Per OT, patient has the same behavior during group time as well. distracted, not able to focus/retain information in a long period of time, flat affect, depressed and anxious but agrees with the plan. 08/05/24: Meet with patient in dining area near TV room. Report that she slept and ate well. Have some loose stool episodes the past couple of days. Report that this sometimes happened at home as well and [facility] is familiar with her when mentioned. She does not remember the meeting happened yesterday but able to recall some details we discussed yesterday when mentioned this during 1-1 assessment. Encourage to be out and attend groups, patient says every time when I walk the devlin/outside, they asked me to go back to my room . Patient says yes to the coloring group at next table but she stands up and walk back to her room. Isolative, quiet, even when out to dinning room, patient has minimal interaction with peers and staff. Reviewed with patient again regarding medication changes and lab results with potential d/c next . Patient denies side effects. Receptive to the plan. ALT/ AST level is improved. Slightly elevated on BUN. Lytes are WNL. 08/06/25: Patient slept well last night, continued to report having diarrhea/loose stools and and heartburn. Order Imodium and Tums. Compliant with medications, reports some back pain even Tylenol with good effect. Patient is quiet, wondering the devlin, not interacting with peers or staff unless approached. Continue to monitor and offer Imodium for loose stool. 08/07/25: Patient slept through the night, medication compliant. Denies side effects. Reports no loose stools today, denies stomach issues. Patient appeared to be brighter, smile happy released moments. Reports she feels better. Remind patient regarding discharge this as she is forgetful. Denies suicidal thoughts and other safety concerns or voices. 08/08/25: Slept for 6 hours, eat well, meds compliant. Denies side effects but report feeling dizzy when changing position this morning with very mild heart burn. Denies anxiety and depression. Brighter affect. Given information regarding Aricept and reviewed with patient of possible GI as side effects. Patient has not attended groups states that she will try today. However, patient just wandering and go back to her room. Continue to monitor for dizziness. Patient educated on: medication risk/benefits and therapeutic strategies Informed Consent: understands and further education needed Reason for continued inpatient stay Substantial Risk for: med/psych decompensation Time Spent With Patient Time: Total time managing care of this patient today ____ minutes.
[2025-08-08 20:58] VITALS: BP 97/57; PULSE 70
[2025-08-09 06:00] VITALS: BMI 26.1
[2025-08-09 08:00] VITALS: BP 89/57; PULSE 60; RESP 16; TEMP 36.8; O2SAT 96
--- NOTE | 2025-08-09 15:14 | P.PNPSI_ITS ---
Subjective Subjective Date of Service: 08/09/25 Reason For Visit: unspecified depressive disorder Subjective Notes: Conditional Voluntary Healthcare Proxy: Yes Guardianship: No Medical Problems Affecting Mental Status: No Interim History: Medical record and nursing notes reviewed; case discussed during rounds with team/nursing staff, and met with patient for supportive therapy/psychoeducation, as well as medication management. Continued to improve in sleep, appetite, and mood. Much brighter compared to the past couple of days, smile happily at times, when out to fresh air break. Reports minimum of heartburn but received tums PRN. Denies anxiety and depression. We will discharge patient on at 11. Sister will pick patient up. passementerie worker is working on aftercare appointments, VNA, and refer patient to elderly services Medication Compliance: Yes Side effects from medications: Yes (Mild GI issues: Heartburn ) Attending Groups: Intermittent (NAVEED) Review of Systems Acute medical concerns: No Medical Review of Systems: unchanged Review of Systems Review of Systems Constitutional: Denies fatigue and Denies fever(s) Cardiovascular: Denies chest pain and Denies dyspnea Respiratory: Denies dyspnea Gastrointestinal: Denies abdominal pain but mild heartburn Psychiatric: denies suicidal ideation Endocrine: Denies fatigue Yes all other systems are reviewed and are negative Mental Status Exam Mental Status Exam Narrative: Patient is alert and oriented, pleasant. Normal speech. Brighter affect. More visible in dining area. Good eye contact. Affect is appropriate. No signs of psychosis. Cognitive impairment. No ALD's issues. Wearing hospital attire, some blood stain on right sleeve hospital attire. Thought process is organized and on treatment but forgetful, poor concentration . No SI/SIB/HI/AVH. Judgment and insight is fair Diagnostics Vital Signs (24Hr): Vital Signs - 24 hr 08/08/25 20:00 08/08/25 20:58 08/09/25 08:00 Temperature 97.8 F 98.3 F Pulse Rate 70 70 60 Respiratory Rate 16 16 Blood Pressure 97/51 L 97/57 L 89/57 L Pulse Oximetry 98 96 Oxygen Delivery Method Room Air Room Air BMI result Body Mass Index 26.1 Labs 08/05/25 07:49 Medications Medications Current Medications Acetaminophen (Acetaminophen 325 Mg Tablet) 650 mg PO Q6H PRN PRN Reason: Headache/Pain, Scale 1-10 Last Admin: 08/08/25 21:18 Dose: 650 mg Al Hydroxide/Mg Hydroxide (Magnesium Hydrox/Alum Hydrox 30 Ml Oral.Susp) 30 ml PO Q6H PRN PRN Reason: Heartburn/Nausea Last Admin: 08/08/25 14:13 Dose: 30 ml Atorvastatin Calcium (Atorvastatin Calcium 40 Mg Tablet) 40 mg PO DAILY [facility] Last Admin: 08/09/25 08:39 Dose: 40 mg Calcium Carbonate (Calcium Carbonate 750 Mg Tab.Chew) 750 mg PO Q4H PRN PRN Reason: Heartburn Last Admin: 08/08/25 13:41 Dose: 750 mg Carvedilol (Carvedilol 25 Mg Tablet) 12.5 mg PO BID [facility]; Protocol Last Admin: 08/09/25 08:45 Dose: 12.5 mg Donepezil HCl (Donepezil Hcl 5 Mg Tablet) 5 mg PO DAILY [facility] Last Admin: 08/09/25 08:39 Dose: 5 mg Fluoxetine HCl (Fluoxetine Hcl 20 Mg Capsule) 60 mg PO DAILY [facility] Last Admin: 08/09/25 08:39 Dose: 60 mg Furosemide (Furosemide 20 Mg Tablet) 10 mg PO DAILY PRN; Protocol PRN Reason: edema Hydroxyzine HCl (Hydroxyzine Hcl 25 Mg Tablet) 25 mg PO Q6H PRN PRN Reason: mild anxiety Last Admin: 08/01/25 20:54 Dose: 25 mg Loperamide HCl (Loperamide Hcl 2 Mg Capsule) 4 mg PO Q4H PRN PRN Reason: Diarrhea Last Admin: 08/06/25 10:03 Dose: 4 mg Magnesium Hydroxide (Milk Of Magnesia 30 Ml Oral.Susp) 30 ml PO DAILY PRN PRN Reason: Constipation Nicotine (Nicotine 21 Mg Patch.Td24) 21 mg TRANSDERMA DAILY PRN PRN Reason: nicotine craving Nicotine Polacrilex (Nicotine Polacrilex 2 Mg Gum) 2 mg BUCCAL Q2H PRN PRN Reason: Nicotine Cravings Trazodone HCl (Trazodone Hcl 50 Mg Tablet) 50 mg PO BEDTIME MRX1 PRN PRN Reason: Insomnia Trazodone HCl (Trazodone Hcl 50 Mg Tablet) 50 mg PO BEDTIME [facility] Last Admin: 08/08/25 20:58 Dose: 50 mg Vitamin D (Cholecalciferol (Vitamin D3) 25 Mcg Tablet) 25 mcg PO DAILY [facility] Last Admin: 08/09/25 08:39 Dose: 25 mcg Allergies Allergies Allergy/AdvReac Type Severity Reaction Status Date / Time No Known Allergies Allergy Verified 07/27/25 22:12 Assessment & Plan Assessment & Plan (1) MDD (major depressive disorder), recurrent episode, moderate: Status: Acute Code(s): F33.1 - Major depressive disorder, recurrent, moderate (2) Major neurocognitive disorder: Status: Acute Code(s): F03.90 - Unspecified dementia, unspecified severity, without behavioral disturbance, psychotic disturbance, mood disturbance, and anxiety Plan Plan Ms. Chavez is a 65 year-old woman who was brought to [facility] due to dizziness. She lives with her mother who is main caregiver and reports that patient for the past 4 years has been presenting with inability to care for herself, getting lost when driving, forgetful. She denies symptoms of depression and suicidality. She reports her main concern is memory gaps. Discussed risks, benefits and alternative treatment options. Will continue current medications. Per mother, she has not been seen by neurology. PLAN She scored a 21/30 on the MoCA indicating mild cognitive impairment with marked deficits in executive function and STM. She scored a 3.6 on the ACLS indicating a large FUNCTIONAL gap and the need for 50% cognitive assistance. Pt is MOD A for ADLs. 07/30 she can't have MRI due to implantable device not compatible with MRI. may need to be referred to memory clinic in her [place] area. otherwise seems stable, mood wick. 07/30: Continue current regimen and plans 07/31: Continue current regimen and plans 08/01: Continue current regimen and plans. 08/02/25: Meet with patient in assigned room. Report she slept and ate well. Last BM was yesterday. Report feeling anxious but not too much for depression. She knows she is at the [facility] but could not remember how she gets there. Mood is pretty good but sometime feels confused. Report recently moved in with mom and mom's partner d/t financial problems- currently has no income. Hx of applied for SSDI/SSI but was denied. She follows psychiatrist with Adair Flores since Covid in [place] and would like to continue service with him for aftercare. Report she had treatment for lymphoma. Denies SI/SIB/HI/AVH. visible in common areas at time but mostly quiet and keep to self. She denies side effects from medication and does not wish to have meds changes at this current time. Continue with current tx plan. Some cognitive impairment. Denies dementia treatment or dx hx. LAURIE will reach out to arrange family meeting this week. MOCA (score 21/30) and ACLS (scored 3.6) was done by OT. Elevated ALT/AST, low Vit D, Low total protein. 08/03/25: patient meet criteria for dementia- Major neurocognitive disorder according to DSM5. Not able to care for self at home. Will schedule family meeting at some point this week. Slept for 6 hours. Medication compliant. Would benefit on medication for dementia and cognitive decline. Start on Aricept 5mg daily in the morning. Monitor for side effects. 08/04/25: Meet with patient in the morning in assigned room, report feeling tired, not anxious or depressed today. Reviewed with patient regarding newly Dementia dx and new medication Aricept which patient started this morning. Patient is made aware of Possible GI side effects During family meeting with her HCP (sister and brother via zoom), treatment team (SW, OT, and this provider) and patient, we reviewed dx, clinical presentation, OT assessment, informed patient and family again regarding meds changes or added on. Increased Prozac up to 60mg and added Vitamin D 25mcg daily on. Lab results also reviewed and safety concerns addressed during meeting. Discharge aftercare plan reviewed and recommendation for aftercare (see LAURIE note for more details). LAURIE will refer patient to elderly services. Tentative discharge next at 1100. sister will pick patient up. Will continue to monitor for any side effects/effectiveness of medication. Patient to FLU with PCP, oncology and psychiatry. Patient walked away from the meeting at the end of the meeting but never return. Per OT, patient has the same behavior during group time as well. distracted, not able to focus/retain information in a long period of time, flat affect, depressed and anxious but agrees with the plan. 08/05/24: Meet with patient in dining area near TV room. Report that she slept and ate well. Have some loose stool episodes the past couple of days. Report that this sometimes happened at home as well and [employer] is familiar with her when mentioned. She does not remember the meeting happened yesterday but able to recall some details we discussed yesterday when mentioned this during 1-1 assessment. Encourage to be out and attend groups, patient says every time when I walk the devlin/outside, they asked me to go back to my room . Patient says yes to the coloring group at next table but she stands up and walk back to her room. Isolative, quiet, even when out to dinning room, patient has minimal interaction with peers and staff. Reviewed with patient again regarding medication changes and lab results with potential d/c next . Patient denies side effects. Receptive to the plan. ALT/ AST level is improved. Slightly elevated on BUN. Lytes are WNL. 08/06/25: Patient slept well last night, continued to report having diarrhea/loose stools and and heartburn. Order Imodium and Tums. Compliant with medications, reports some back pain even Tylenol with good effect. Patient is quiet, wondering the devlin, not interacting with peers or staff unless approached. Continue to monitor and offer Imodium for loose stool. 08/07/25: Patient slept through the night, medication compliant. Denies side effects. Reports no loose stools today, denies stomach issues. Patient appeared to be brighter, smile happy released moments. Reports she feels better. Remind patient regarding discharge this as she is forgetful. Denies suicidal thoughts and other safety concerns or voices. 08/08/25: Slept for 6 hours, eat well, meds compliant. Denies side effects but report feeling dizzy when changing position this morning with very mild heart burn. Denies anxiety and depression. Brighter affect. Given information regarding Aricept and reviewed with patient of possible GI as side effects. Patient has not attended groups states that she will try today. However, patient just wandering and go back to her room. Continue to monitor for dizziness. 08/09/25: Continued to improve in sleep, appetite, and mood. Much brighter compared to the past couple of days, smile happily at times, when out to fresh air break. Reports minimum of heartburn but received tums PRN. Denies anxiety and depression. We will discharge patient on at 11. Sister will pick patient up. passementerie worker is working on aftercare appointments, VNA, and refer patient to elderly services Patient educated on: diagnosis, medication risk/benefits and therapeutic strategies Informed Consent: understands and further education needed Reason for continued inpatient stay Substantial Risk for: med/psych decompensation Time Spent With Patient Time: Total time managing care of this patient today ____ minutes.
[2025-08-09 20:00] VITALS: BP 99/53; PULSE 71; RESP 16; TEMP 36.8; O2SAT 95
[2025-08-09 20:26] VITALS: BP 99/53; PULSE 70
[2025-08-10 06:00] VITALS: BMI 26.1
[2025-08-10 08:00] VITALS: BP 106/68; PULSE 69; RESP 16; TEMP 36.5; O2SAT 97
--- NOTE | 2025-08-10 19:43 | HO.PSYCHPN ---
Subjective Subjective Date of Service: 08/10/25 Reason For Visit: unspecified depressive disorder Subjective Notes: Conditional Voluntary Healthcare Proxy: Yes Guardianship: No Medical Problems Affecting Mental Status: No Interim History: Medical record and nursing notes reviewed; case discussed during rounds with team/nursing staff, and met with patient for supportive therapy/psychoeducation, as well as medication management. Continue improving in mood and sleep. Compliant with medications,mild dizziness on heartburn. Denies safety concerns. She is looking forward to going home tomorrow. We will work on sending medication to preferred pharmacy so that sister can picker machine operator tomorrow by prior to picking up the patient. Due to dementia with cognitive and functioning impairment, I would recommend nursing assessment for medication and ADL's res habilitation assistant. Medication Compliance: Yes Side effects from medications: No Attending Groups: No Review of Systems Acute medical concerns: No Medical Review of Systems: unchanged Review of Systems Review of Systems Constitutional: Denies fatigue and Denies fever(s) Cardiovascular: Denies chest pain and Denies dyspnea Respiratory: Denies dyspnea Gastrointestinal: Denies abdominal pain Psychiatric: denies suicidal ideation Endocrine: Denies fatigue Yes all other systems are reviewed and are negative Mental Status Exam Mental Status Exam Narrative: Patient is alert and oriented, pleasant. Normal speech. Brighter affect. Visible. Good eye contact. Affect is appropriate. No signs of psychosis. Cognitive impairment. Improving in depression/anxiety. No ALD's issues. Wearing hospital attire. Thought process is organized and on treatment but forgetful, poor concentration . No SI/SIB/HI/AVH. Judgment and insight is fair Diagnostics Vital Signs (24Hr): Vital Signs - 24 hr 08/09/25 20:00 08/09/25 20:26 08/10/25 08:00 Temperature 98.2 F 97.7 F Pulse Rate 71 70 69 Respiratory Rate 16 16 Blood Pressure 99/53 L 99/53 L 106/68 Pulse Oximetry 95 97 Oxygen Delivery Method Room Air BMI result Body Mass Index 26.1 Labs 08/05/25 07:49 Medications Medications Current Medications Acetaminophen (Acetaminophen 325 Mg Tablet) 650 mg PO Q6H PRN PRN Reason: Headache/Pain, Scale 1-10 Last Admin: 08/08/25 21:18 Dose: 650 mg Al Hydroxide/Mg Hydroxide (Magnesium Hydrox/Alum Hydrox 30 Ml Oral.Susp) 30 ml PO Q6H PRN PRN Reason: Heartburn/Nausea Last Admin: 08/08/25 14:13 Dose: 30 ml Atorvastatin Calcium (Atorvastatin Calcium 40 Mg Tablet) 40 mg PO DAILY [facility] Last Admin: 08/10/25 08:32 Dose: 40 mg Calcium Carbonate (Calcium Carbonate 750 Mg Tab.Chew) 750 mg PO Q4H PRN PRN Reason: Heartburn Last Admin: 08/09/25 15:30 Dose: 750 mg Carvedilol (Carvedilol 25 Mg Tablet) 12.5 mg PO BID [facility]; Protocol Last Admin: 08/10/25 08:33 Dose: 12.5 mg Donepezil HCl (Donepezil Hcl 5 Mg Tablet) 5 mg PO DAILY [facility] Last Admin: 08/10/25 08:33 Dose: 5 mg Fluoxetine HCl (Fluoxetine Hcl 20 Mg Capsule) 60 mg PO DAILY [facility] Last Admin: 08/10/25 08:32 Dose: 60 mg Furosemide (Furosemide 20 Mg Tablet) 10 mg PO DAILY PRN; Protocol PRN Reason: edema Hydroxyzine HCl (Hydroxyzine Hcl 25 Mg Tablet) 25 mg PO Q6H PRN PRN Reason: mild anxiety Last Admin: 08/01/25 20:54 Dose: 25 mg Loperamide HCl (Loperamide Hcl 2 Mg Capsule) 4 mg PO Q4H PRN PRN Reason: Diarrhea Last Admin: 08/06/25 10:03 Dose: 4 mg Magnesium Hydroxide (Milk Of Magnesia 30 Ml Oral.Susp) 30 ml PO DAILY PRN PRN Reason: Constipation Nicotine (Nicotine 21 Mg Patch.Td24) 21 mg TRANSDERMA DAILY PRN PRN Reason: nicotine craving Nicotine Polacrilex (Nicotine Polacrilex 2 Mg Gum) 2 mg BUCCAL Q2H PRN PRN Reason: Nicotine Cravings Trazodone HCl (Trazodone Hcl 50 Mg Tablet) 50 mg PO BEDTIME MRX1 PRN PRN Reason: Insomnia Trazodone HCl (Trazodone Hcl 50 Mg Tablet) 50 mg PO BEDTIME [facility] Last Admin: 08/09/25 20:21 Dose: 50 mg Vitamin D (Cholecalciferol (Vitamin D3) 25 Mcg Tablet) 25 mcg PO DAILY [facility] Last Admin: 08/10/25 08:33 Dose: 25 mcg Allergies Allergies Allergy/AdvReac Type Severity Reaction Status Date / Time No Known Allergies Allergy Verified 07/27/25 22:12 Assessment & Plan Assessment & Plan (1) Major neurocognitive disorder: Status: Acute Code(s): F03.90 - Unspecified dementia, unspecified severity, without behavioral disturbance, psychotic disturbance, mood disturbance, and anxiety (2) MDD (major depressive disorder), recurrent episode, moderate: Status: Acute Code(s): F33.1 - Major depressive disorder, recurrent, moderate Plan Plan Ms. Chavez is a 65 year-old woman who was brought to [facility] due to dizziness. She lives with her mother who is main caregiver and reports that patient for the past 4 years has been presenting with inability to care for herself, getting lost when driving, forgetful. She denies symptoms of depression and suicidality. She reports her main concern is memory gaps. Discussed risks, benefits and alternative treatment options. Will continue current medications. Per mother, she has not been seen by neurology. PLAN She scored a 21/30 on the MoCA indicating mild cognitive impairment with marked deficits in executive function and STM. She scored a 3.6 on the ACLS indicating a large FUNCTIONAL gap and the need for 50% cognitive assistance. Pt is MOD A for ADLs. 07/30 she can't have MRI due to implantable device not compatible with MRI. may need to be referred to memory clinic in her catch area. otherwise seems stable, mood wick. 07/30: Continue current regimen and plans 07/31: Continue current regimen and plans 08/01: Continue current regimen and plans. 08/02/25: Meet with patient in assigned room. Report she slept and ate well. Last BM was yesterday. Report feeling anxious but not too much for depression. She knows she is at the [facility] but could not remember how she gets there. Mood is pretty good but sometime feels confused. Report recently moved in with mom and mom's partner d/t financial problems- currently has no income. Hx of applied for SSDI/SSI but was denied. She follows psychiatrist with Adair Flores since Covid in [place] and would like to continue service with him for aftercare. Report she had treatment for lymphoma. Denies SI/SIB/HI/AVH. visible in common areas at time but mostly quiet and keep to self. She denies side effects from medication and does not wish to have meds changes at this current time. Continue with current tx plan. Some cognitive impairment. Denies dementia treatment or dx hx. SW will reach out to arrange family meeting this week. MOCA (score 21/30) and ACLS (scored 3.6) was done by OT. Elevated ALT/AST, low Vit D, Low total protein. 08/03/25: patient meet criteria for dementia- Major neurocognitive disorder according to DSM5. Not able to care for self at home. Will schedule family meeting at some point this week. Slept for 6 hours. Medication compliant. Would benefit on medication for dementia and cognitive decline. Start on Aricept 5mg daily in the morning. Monitor for side effects. 08/04/25: Meet with patient in the morning in assigned room, report feeling tired, not anxious or depressed today. Reviewed with patient regarding newly Dementia dx and new medication Aricept which patient started this morning. Patient is made aware of Possible GI side effects During family meeting with her HCP (sister and brother via zoom), treatment team (SW, OT, and this provider) and patient, we reviewed dx, clinical presentation, OT assessment, informed patient and family again regarding meds changes or added on. Increased Prozac up to 60mg and added Vitamin D 25mcg daily on. Lab results also reviewed and safety concerns addressed during meeting. Discharge aftercare plan reviewed and recommendation for aftercare (see SW note for more details). LAURIE will refer patient to elderly services. Tentative discharge next at 1100. sister will pick patient up. Will continue to monitor for any side effects/effectiveness of medication. Patient to FLU with PCP, oncology and psychiatry. Patient walked away from the meeting at the end of the meeting but never return. Per OT, patient has the same behavior during group time as well. distracted, not able to focus/retain information in a long period of time, flat affect, depressed and anxious but agrees with the plan. 08/05/24: Meet with patient in dining area near TV room. Report that she slept and ate well. Have some loose stool episodes the past couple of days. Report that this sometimes happened at home as well and [employer] is familiar with her when mentioned. She does not remember the meeting happened yesterday but able to recall some details we discussed yesterday when mentioned this during 1-1 assessment. Encourage to be out and attend groups, patient says every time when I walk the devlin/outside, they asked me to go back to my room . Patient says yes to the coloring group at next table but she stands up and walk back to her room. Isolative, quiet, even when out to dinning room, patient has minimal interaction with peers and staff. Reviewed with patient again regarding medication changes and lab results with potential d/c next . Patient denies side effects. Receptive to the plan. ALT/ AST level is improved. Slightly elevated on BUN. Lytes are WNL. 08/06/25: Patient slept well last night, continued to report having diarrhea/loose stools and and heartburn. Order Imodium and Tums. Compliant with medications, reports some back pain even Tylenol with good effect. Patient is quiet, wondering the devlin, not interacting with peers or staff unless approached. Continue to monitor and offer Imodium for loose stool. 08/07/25: Patient slept through the night, medication compliant. Denies side effects. Reports no loose stools today, denies stomach issues. Patient appeared to be brighter, smile happy released moments. Reports she feels better. Remind patient regarding discharge this as she is forgetful. Denies suicidal thoughts and other safety concerns or voices. 08/08/25: Slept for 6 hours, eat well, meds compliant. Denies side effects but report feeling dizzy when changing position this morning with very mild heart burn. Denies anxiety and depression. Brighter affect. Given information regarding Aricept and reviewed with patient of possible GI as side effects. Patient has not attended groups states that she will try today. However, patient just wandering and go back to her room. Continue to monitor for dizziness. 08/09/25: Continued to improve in sleep, appetite, and mood. Much brighter compared to the past couple of days, smile happily at times, when out to fresh air break. Reports minimum of heartburn but received tums PRN. Denies anxiety and depression. We will discharge patient on at 11. Sister will pick patient up. fruit or nut farm worker is working on aftercare appointments, VNA, and refer patient to elderly services. 08/10/25: Continue improving in mood and sleep. Compliant with medications,mild dizziness on heartburn. Denies safety concerns. She is looking forward to going home tomorrow. We will work on sending medication to preferred pharmacy so that sister can picker machine operator tomorrow by prior to picking up the patient. Due to dementia with cognitive and functioning impairment, I would recommend nursing assessment for medication and ADL's res habilitation assistant. Patient educated on: diagnosis, medication risk/benefits and therapeutic strategies Informed Consent: understands Reason for continued inpatient stay Substantial Risk for: med/psych decompensation Time Spent With Patient Time: Total time managing care of this patient today ____ minutes.
[2025-08-10 19:53] VITALS: BP 117/65; PULSE 73; RESP 16; TEMP 36.4; O2SAT 96
--- NOTE | 2025-08-11 06:55 | PM.PSYDC ---
DS: Providers Provider Date of Service: 08/11/25 Date of admission: 07/27/25 22:02 Date of discharge: 08/11/25 Primary care physician: Unknown Physician Attending physician on admission: Ellen Sousa Consults: 07/27/25 22:54 Consult to Hospitalist Routine Comment: Consulting Provider: [facility] [place] Hospitalists Reason For Exam: New external admit H+P Attending physician on discharge: Yovana Carvajal DS: Diagnosis Discharge Diagnosis (1) Major neurocognitive disorder: Status: Acute (2) MDD (major depressive disorder), recurrent episode, moderate: Status: Acute DS: Medications Discharge Medications Home Medications: Previous Rx's ?Medication ?Instructions ?Recorded atorvastatin 40 mg tablet 40 mg PO DAILY HTN 30 days #30 tabs 08/10/25 carvedilol 25 mg tablet 12.5 mg (1/2 x 25 mg) PO BID HTN 08/10/25 30 days #30 tabs cholecalciferol (vitamin D3) 25 25 mcg PO DAILY Supplement 30 08/10/25 mcg (1,000 unit) tablet days #30 tabs donepezil 5 mg tablet 5 mg PO DAILY Dementia 30 days 08/10/25 #30 tabs fluoxetine 20 mg capsule (Prozac) 20 mg PO DAILY Depression 30 days 08/10/25 #30 caps fluoxetine 40 mg capsule 40 mg PO QAM Depression 30 days 08/10/25 #30 caps trazodone 50 mg tablet 50 mg PO BEDTIME insomnia 30 days 08/10/25 #30 tabs Mental Status Exam Mental Status Exam Narrative: Patient presents well-groomed, hospital dressed. Flat but brighter affect. Speech is clear and coherent. Thought process is linear and logical with cognitive decline and impairment which consistent with newly dx of dementia. Can be forgetful. Thought content is appropriate and relevant. Patient denies suicidal or homicidal ideation intent or plan. No overt psychotic symptoms elicited. Insight is good. Judgment is good. Data Data Completed and Pending Completed studies during hospitalization [Text1]: 08/05/25 07:49 Sodium 144 Potassium 4.0 Chloride 108 Carbon Dioxide 27 Anion Gap 13 BUN 18 H Creatinine 0.75 Estim Creat Clear Calc 73.3 Estimated GFR > 60 Random Glucose 97 Calcium 9.4 Total Bilirubin 0.3 AST 32 H ALT 39 H Alkaline Phosphatase 161 H Total Protein 6.7 Albumin 3.5 DS: Summary Hospital Course Hospital Course: Ms. Chavez is a 65 year-old woman who was brought to [facility] due to dizziness. She lives with her mother who is main caregiver and reports that patient for the past 4 years has been presenting with inability to care for herself, getting lost when driving, forgetful. She denies symptoms of depression and suicidality. She reports her main concern is memory gaps. Discussed risks, benefits and alternative treatment options. Will continue current medications. Per mother, she has not been seen by neurology. PLAN Patient scored a 21/30 on the MoCA indicating mild cognitive impairment with marked deficits in executive function and STM. She scored a 3.6 on the ACLS indicating a large FUNCTIONAL gap and the need for 50% cognitive assistance. Pt is MOD A for ADLs. See More details of aftercare plan for patient in D/C section Due to dementia with cognitive and functioning impairment, I would recommend nursing assessment for medication and ADL's trust administrative assistant. Hospital Course: 07/30 she can't have MRI due to implantable device not compatible with MRI. May need to be referred to memory clinic in her [place] area. otherwise seems stable, mood wick. 07/30: Continue current regimen and plans 07/31: Continue current regimen and plans 08/01: Continue current regimen and plans. 08/02/25: Meet with patient in assigned room. Report she slept and ate well. Last BM was yesterday. Report feeling anxious but not too much for depression. She knows she is at the [facility] but could not remember how she gets there. Mood is pretty good but sometime feels confused. Report recently moved in with mom and mom's partner d/t financial problems- currently has no income. Hx of applied for SSDI/SSI but was denied. She follows psychiatrist -Adair Flores since [facility] in [place] and would like to continue service with him for aftercare. Report she had treatment for lymphoma. Denies SI/SIB/HI/AVH. visible in common areas at time but mostly quiet and keep to self. She denies side effects from medication and does not wish to have meds changes at this current time. Continue with current tx plan. Some cognitive impairment. Denies dementia treatment or dx hx. SW will reach out to arrange family meeting this week. MOCA (score 21/30) and ACLS (scored 3.6) was done by OT. Elevated ALT/AST, low Vit D, Low total protein. 08/03/25: patient meet criteria for dementia- Major neurocognitive disorder according to DSM5. Not able to care for self at home. Will schedule family meeting at some point this week. Slept for 6 hours. Medication compliant. Would benefit on medication for dementia and cognitive decline. Start on Aricept 5mg daily in the morning. Monitor for side effects. 08/04/25: Meet with patient in the morning in assigned room, report feeling tired, not anxious or depressed today. Reviewed with patient regarding newly Dementia dx and new medication Aricept which patient started this morning. Patient is made aware of Possible GI side effects During family meeting with her HCP (sister and brother via zoom), treatment team (SW, OT, and this provider) and patient, we reviewed dx, clinical presentation, OT assessment, informed patient and family again regarding meds changes or added on. Increased Prozac up to 60mg and added Vitamin D 25mcg daily on. Lab results also reviewed and safety concerns addressed during meeting. Discharge aftercare plan reviewed and recommendation for aftercare (see LAURIE note for more details). LAURIE will refer patient to elderly services. Tentative discharge next at 1100. sister will pick patient up. Will continue to monitor for any side effects/effectiveness of medication. Patient to FLU with PCP, oncology and psychiatry. Patient walked away from the meeting at the end of the meeting but never return. Per OT, patient has the same behavior during group time as well. distracted, not able to focus/retain information in a long period of time, flat affect, depressed and anxious but agrees with the plan. 08/05/24: Meet with patient in dining area near TV room. Report that she slept and ate well. Have some loose stool episodes the past couple of days. Report that this sometimes happened at home as well and Rafat is familiar with her when mentioned. She does not remember the meeting happened yesterday but able to recall some details we discussed yesterday when mentioned this during 1-1 assessment. Encourage to be out and attend groups, patient says every time when I walk the devlin/outside, they asked me to go back to my room . Patient says yes to the coloring group at next table but she stands up and walk back to her room. Isolative, quiet, even when out to dinning room, patient has minimal interaction with peers and staff. Reviewed with patient again regarding medication changes and lab results with potential d/c next . Patient denies side effects. Receptive to the plan. ALT/ AST level is improved. Slightly elevated on BUN. Lytes are WNL. 08/06/25: Patient slept well last night, continued to report having diarrhea/loose stools and and heartburn. Order Imodium and Tums. Compliant with medications, reports some back pain given Tylenol with good effect. Patient is quiet, wondering the devlin, not interacting with peers or staff unless approached. Continue to monitor and offer Imodium for loose stool. 08/07/25: Patient slept through the night, medication compliant. Denies side effects. Reports no loose stools today, denies stomach issues. Patient appeared to be brighter, smile happy released moments. Reports she feels better. Remind patient regarding discharge this as she is forgetful. Denies suicidal thoughts and other safety concerns or voices. 08/08/25: Slept for 6 hours, eat well, meds compliant. Denies side effects but report feeling dizzy when changing position this morning with very mild heart burn. Denies anxiety and depression. Brighter affect. Given information regarding Aricept and reviewed with patient of possible GI as side effects. Patient has not attended groups states that she will try today. However, patient just wandering and go back to her room. Continue to monitor for dizziness. 08/09/25: Continued to improve in sleep, appetite, and mood. Much brighter compared to the past couple of days, smile happily at times, when out to fresh air break. Reports minimum of heartburn but received tums PRN. Denies anxiety and depression. We will discharge patient on at 11. Sister will pick patient up. youth worker is working on aftercare appointments, VNA, and refer patient to elderly services. 08/10/25: Continue improving in mood and sleep. Compliant with medications,mild dizziness on heartburn. Denies safety concerns. She is looking forward to going home tomorrow. We will work on sending medication to preferred pharmacy so that sister can quill picking machine operator tomorrow by prior to picking up the patient. Due to dementia with cognitive and functioning impairment, I would recommend nursing assessment for medication and ADL's trust administrative assistant. Time spent discussing smoking cessation with patient: 3 to 10 minutes Status at Discharge Cognitive/behavioral status at discharge: CONDITION ON DISCHARGE: CURRENT STATUS IT RELATES TO ADMISSION CRITERIA: Stable, improved. Improvements in depression, anxiety, and suicidal ideation. Improvements in sleep, energy, and appetite. and no hallucination or paranoia/delusional thought. Moderate to severe cognitive impairment consistent with Dementia dx. Functional status at discharge: independent ambulation Overall status at discharge: patient is back to baseline Time Spent with Patient Time attestation: Total time managing care of this patient today ____ minutes. Time spent: Greater than 30 minutes Discharge Plan Discharge Anticipated Discharge Date/Time: 08/11/25 11:00 Patient Disposition: Home, Self-Care Discharge Diagnosis: Major Neurocognitive Disorder> MDD- moderate. Kidney disease. Referrals: Melanie Negrete MD [facility] PCP [Other] - 09/02/25 1:40 pm Referral Note: Your next appointment with Dr Negrete's office is scheduled for 09/02/25 at 1:40PM. [facility] [place] [Other] - 08/12/25 Referral Note: Request for your VNA services to resume for fpc, PT and OT was placed. You will also have a nursing assessment to assess for home health aide. VNA will contact you by phone. [email or web address] [Other] - 3-5 Days Referral Note: A referral for homecare services was placed on 08/10. [facility] will be in contact to set up home visit following discharge. Cecilio Flores PhD [Other] - 1 Week Referral Note: A request for follow up has been made by your PCP s office and a request for psychiatrist through [facility] outpatient psychiatry has been made by your PCP. Please follow up with your primary care doctor's office. Discharge Medications: New donepezil 5 mg Tablet 5 mg PO DAILY 30 Days Qty: 30 0RF cholecalciferol (vitamin D3) 25 mcg (1,000 unit) Tablet 25 mcg PO DAILY 30 Days Qty: 30 0RF fluoxetine [Prozac] 20 mg capsule 20 mg PO DAILY 30 Days Qty: 30 0RF Rx Instructions: Take with 40mg for total of 60mg daily in the morning. Continued fluoxetine 40 mg capsule 40 mg PO QAM 30 Days Qty: 30 0RF Rx Instructions: Take with 20mg for total of 60mg daily in the morning atorvastatin 40 mg tablet 40 mg PO DAILY 30 Days Qty: 30 0RF trazodone 50 mg tablet 50 mg PO BEDTIME 30 Days Qty: 30 0RF Changed carvedilol 25 mg tablet 12.5 mg PO BID 30 Days Qty: 30 0RF Discontinued lisinopril 10 mg tablet 10 mg PO DAILY Discharge Orders: Discharge Order (Routine); Ordered 08/11/25 Ordered By: Yovana Carvajal Diet: Regular diet Activity on Discharge: No Restrictions Stand Alone Forms: Patient Portal Discharge page Print Language: Georgian Care Plan Goals: Maintain mood and safe behaviors Take medications as prescribed Continue to pursue sobriety Practice coping skills Continue with outpatient providers and reach out to them as needed Health Concerns: Mood stability and behaviors Sobriety Plan of Treatment: Follow up with your PCP, psychiatric provider and other outpatient providers regarding above concerns Take medications as prescribed Recommend Nursing assessment for medication and ALD's trust administrative assistant. Assessment: Assessment: Risk assessment at time of discharge: Patient was interviewed prior to discharge and found to be fully oriented and without any SI or HI. Patient has improved insight and judgment and wants to continue treatment. Patient is not in imminent risk of harm to self or others and has a safety plan that includes presenting to the closest ER or calling 911 if feeling unsafe. Patient has been observed closely by nursing and unit staff throughout admission; patient has not engaged in any behaviors that suggest dangerousness to self or others and has demonstrated appropriate behaviors and impulse control
[2025-08-11 09:10] VITALS: BP 103/58; PULSE 72; RESP 16; TEMP 36.5; O2SAT 96
== END 2025-08-11 11:30 | disposition home or self-care (01) | DRG 751 ==
PROVIDERS: Nurse Practitioner Psychiatric/Mental Health; Admitting Provider Psychiatry & Neurology Psychiatry; Visit Provider Social Worker
DX: F33.1 Major depressive disorder, recurrent, moderate (principal); F03.90 Unspecified dementia, unspecified severity, without behavioral disturbance, psychotic disturbance, mood disturbance, and anxiety; I13.0 Hypertensive heart and chronic kidney disease with heart failure and stage 1 through stage 4 chronic kidney disease, or unspecified chronic kidney disease; I50.22 Chronic systolic (congestive) heart failure; N13.30 Unspecified hydronephrosis; I44.7 Left bundle-branch block, unspecified; N18.30 Chronic kidney disease, stage 3 unspecified; Z95.810 Presence of automatic (implantable) cardiac defibrillator; Z79.899 Other long term (current) drug therapy
CPT/HCPCS: 36415; 80053; 80061; 82306; 82607; 82746; 83036; 84439; 84443

== ENCOUNTER → 2025-07-27 22:02 | Outpatient (BNV) | payer OTHER, SELFPAY | PROVIDERS: Admitting Provider Psychiatry & Neurology Psychiatry; Visit Provider Social Worker | DX: F33.1 Major depressive disorder, recurrent, moderate (principal) | CPT/HCPCS: 90792; 99231; 99232 ==

== ENCOUNTER → 2025-07-27 22:02 | Outpatient (BNV) | payer OTHER, SELFPAY | PROVIDERS: Admitting Provider Psychiatry & Neurology Psychiatry; Visit Provider Nurse Practitioner Family | DX: N18.9 Chronic kidney disease, unspecified (principal) | CPT/HCPCS: 99221 ==